=== PATIENT | female | born 1960 | race Caucasian/White ===

== ENCOUNTER 2017-06-23 11:17 | Inpatient (IN) | payer BC ==
--- NOTE | 2017-06-23 11:33 | ED ---
General Adult HPI - General Chief complaint: Neuro Symptoms/Deficit Stated complaint: LEFT ARM TINGLING, WEAKNESS, SOB Time Seen by Provider: 06/23/17 11:25 Source: patient, RN notes reviewed, old records reviewed Mode of arrival: ambulatory Limitations: no limitations - History of Present Illness Initial comments: This is a 57-year-old female to the ER for evaluation today. This patient presents for evaluation regarding episode of elevated heart rate diaphoresis shortness of breath. Patient has no specific medical history maybe by borderline high blood pressure and obesity. Patient states she was mowing her lawn which minimalistic bricks aggressive activity for her, she was mowing lawn became severely short of breath diaphoretic snores and tingling on her right arm. They did she does with the patient and pulse was in the 170s. She took a shower the pulse improved but she still felt very sweaty and clammy, patient comes here at this point with symptoms mild mildly to almost completely resolved - Related Data Home Medications Medication Instructions Recorded Confirmed Desvenlafaxine Succinate [Pristiq 50 mg PO DAILY 12/15/15 06/23/17 ER] Hydrochlorothiazide [Hydrodiuril] 25 mg PO DAILY 12/15/15 06/23/17 Cholecalciferol [Vitamin D3] 5,000 unit PO DAILY 12/21/15 06/23/17 Fish Oil/Dha/Epa [Fish Oil 1,200 1 cap PO DAILY 06/23/17 06/23/17 mg Fish Oil] SUMAtriptan SUCCINATE [Imitrex] 100 mg PO DAILY PRN 06/23/17 06/23/17 Allergies Allergy/AdvReac Type Severity Reaction Status Date / Time adhesive Allergy Severe lake to Verified 06/23/17 12:55 skin Review of Systems ROS Statement: Those systems with pertinent positive or pertinent negative responses have been documented in the HPI. ROS Other: All systems not noted in ROS Statement are negative. Past Medical History Additional Past Medical History / Comment(s): MIGRAINES, Edema, History of Any Multi-Drug Resistant Organisms: None Reported Past Surgical History: Section, Hysterectomy Additional Past Surgical History / Comment(s): BILATERAL KNEE SURGERY Past Psychological History: Depression Smoking Status: Never smoker Past Alcohol Use History: None Reported Past Drug Use History: None Reported General Exam Limitations: no limitations General appearance: alert, in no apparent distress Head exam: Present: atraumatic, normocephalic, normal inspection Eye exam: Present: normal appearance, PERRL, EOMI. Absent: scleral icterus, conjunctival injection, periorbital swelling ENT exam: Present: normal exam, mucous membranes moist Neck exam: Present: normal inspection. Absent: tenderness, meningismus, lymphadenopathy Respiratory exam: Present: normal lung sounds bilaterally. Absent: respiratory distress, wheezes, rales, rhonchi, stridor Cardiovascular Exam: Present: regular rate, normal rhythm, normal heart sounds. Absent: systolic murmur, diastolic murmur, rubs, gallop, clicks GI/Abdominal exam: Present: soft, normal bowel sounds. Absent: distended, tenderness, guarding, rebound, rigid Extremities exam: Present: normal inspection, full ROM, normal capillary refill. Absent: tenderness, pedal edema, joint swelling, calf tenderness Back exam: Present: normal inspection Neurological exam: Present: alert, oriented X3, CN II-XII intact Psychiatric exam: Present: normal affect, normal mood Skin exam: Present: warm, dry, intact, normal color. Absent: rash Course Vital Signs 06/23/17 06/23/17 06/23/17 11:24 12:08 13:47 Temperature 97.2 F L 98.8 F Pulse Rate 70 65 60 Respiratory 16 16 16 Rate Blood Pressure 150/72 114/69 127/66 O2 Sat by Pulse 95 97 99 Oximetry 06/23/17 14:19 Temperature Pulse Rate 59 L Respiratory 16 Rate Blood Pressure 131/61 O2 Sat by Pulse 100 Oximetry - Reevaluation(s) Reevaluation #1: 06/23/17 14:09 Patient has no change, remains asymptomatic. No complaints of chest pain or shortness of breath Reevaluation #2: 06/23/17 14:09 Patient discussed need to stay for cardiac observation, patient is initially to follow-up with cardiology, states she is asymptomatic, patient is told we will check another troponin and if that is negative she will be able to. Sent home as patient's to request being discharged EKG Findings - EKG Comments: EKG Findings:: EKG shows normal sinus rhythm rate of 72, AK 180, QRS 08, QTC 429 Medical Decision Making - Medical Decision Making 57 female to the ER for evaluation regarding elevated heart rate, with activity. Patient did feel diaphoretic at the time. She did take a shower afterwards felt better without fully improved, noting that her heart rate was elevated in the 170s unaffected. Patient in the ER for evaluation, no chest pain or shortness of breath a symptomatically entire emergency department stay, patient consulted disdain for echo and stress test, refusing, states she would like to follow-up as an outpatient. Troponin negative 2 EKG normal - Lab Data Result diagrams: 06/23/17 11:41 06/23/17 11:41 Lab Results 06/23/17 06/23/17 06/23/17 Range/Units 11:41 11:41 11:41 WBC 11.1 H (3.8-10.6) k/uL RBC 4.68 (3.80-5.40) m/uL Hgb 14.1 (11.4-16.0) gm/dL Hct 42.4 (34.0-46.0) % MCV 90.7 (80.0-100.0) fL MCH 30.2 (25.0-35.0) pg MCHC 33.3 (31.0-37.0) g/dL RDW 13.5 (11.5-15.5) % Plt Count 318 (150-450) k/uL Neutrophils % 66 % Lymphocytes % 24 % Monocytes % 7 % Eosinophils % 1 % Basophils % 1 % Neutrophils # 7.3 (1.3-7.7) k/uL Lymphocytes # 2.6 (1.0-4.8) k/uL Monocytes # 0.8 (0-1.0) k/uL Eosinophils # 0.1 (0-0.7) k/uL Basophils # 0.1 (0-0.2) k/uL PT (9.0-12.0) sec INR (<1.2) APTT (22.0-30.0) sec Sodium 142 (137-145) mmol/L Potassium 3.6 (3.5-5.1) mmol/L Chloride 105 (98-107) mmol/L Carbon Dioxide 29 (22-30) mmol/L Anion Gap 8 mmol/L BUN 14 (7-17) mg/dL Creatinine 0.65 (0.52-1.04) mg/dL Est GFR (MDRD) Af Amer >60 (>60 ml/min/1.73 sqM) Est GFR (MDRD) Non-Af >60 (>60 ml/min/1.73 sqM) Glucose 86 (74-99) mg/dL Calcium 9.5 (8.4-10.2) mg/dL Phosphorus 2.6 (2.5-4.5) mg/dL Magnesium 2.2 (1.6-2.3) mg/dL Total Bilirubin 0.5 (0.2-1.3) mg/dL AST 33 (14-36) U/L ALT 50 (9-52) U/L Alkaline Phosphatase 135 H (38-126) U/L Total Creatine Kinase 43 (30-135) U/L CK-MB (CK-2) 0.4 (0.0-2.4) ng/mL CK-MB (CK-2) Rel Index 0.9 Troponin I 0.012 (0.000-0.034) ng/mL Total Protein 7.1 (6.3-8.2) g/dL Albumin 3.7 (3.5-5.0) g/dL TSH 2.340 (0.465-4.680) mIU/L 06/23/17 Range/Units 11:41 WBC (3.8-10.6) k/uL RBC (3.80-5.40) m/uL Hgb (11.4-16.0) gm/dL Hct (34.0-46.0) % MCV (80.0-100.0) fL MCH (25.0-35.0) pg MCHC (31.0-37.0) g/dL RDW (11.5-15.5) % Plt Count (150-450) k/uL Neutrophils % % Lymphocytes % % Monocytes % % Eosinophils % % Basophils % % Neutrophils # (1.3-7.7) k/uL Lymphocytes # (1.0-4.8) k/uL Monocytes # (0-1.0) k/uL Eosinophils # (0-0.7) k/uL Basophils # (0-0.2) k/uL PT 10.3 (9.0-12.0) sec INR 1.0 (<1.2) APTT 24.5 (22.0-30.0) sec Sodium (137-145) mmol/L Potassium (3.5-5.1) mmol/L Chloride (98-107) mmol/L Carbon Dioxide (22-30) mmol/L Anion Gap mmol/L BUN (7-17) mg/dL Creatinine (0.52-1.04) mg/dL Est GFR (MDRD) Af Amer (>60 ml/min/1.73 sqM) Est GFR (MDRD) Non-Af (>60 ml/min/1.73 sqM) Glucose (74-99) mg/dL Calcium (8.4-10.2) mg/dL Phosphorus (2.5-4.5) mg/dL Magnesium (1.6-2.3) mg/dL Total Bilirubin (0.2-1.3) mg/dL AST (14-36) U/L ALT (9-52) U/L Alkaline Phosphatase (38-126) U/L Total Creatine Kinase (30-135) U/L CK-MB (CK-2) (0.0-2.4) ng/mL CK-MB (CK-2) Rel Index Troponin I (0.000-0.034) ng/mL Total Protein (6.3-8.2) g/dL Albumin (3.5-5.0) g/dL TSH (0.465-4.680) mIU/L - Radiology Data Radiology results: report reviewed (CXR is negative for acute disease), image reviewed Disposition Clinical Impression: Tachycardia Disposition: HOME SELF-CARE Condition: Good Instructions: Tachycardia (ED) Referrals: Espinoza Panchal MD [Primary Care Provider] - 1-2 days
[2017-06-23] MEDS ORDERED: SODIUM CHLORIDE 0.9% 1,000 ML IV STA ×2 (11:34)
[2017-06-23 11:51] LABS: Basophils # (A) 0.1 k/uL (0-0.2); Basophils % (A) 1 %; CHCM 33.2; Eosinophils # (A) 0.1 k/uL (0-0.7); Eosinophils % (A) 1 %; HCT 42.4 % (34.0-46.0); HDW 2.22; HGB 14.1 gm/dL (11.4-16.0); Luc # (Auto) 0.18; Luc % (Auto) 2; Lymphocytes # (A) 2.6 k/uL (1.0-4.8); Lymphocytes % (A) 24 %; MCH 30.2 pg (25.0-35.0); MCHC 33.3 g/dL (31.0-37.0); MCV 90.7 fL (80.0-100.0); Mean Platelet Volume 7.4; Monocytes # (A) 0.8 k/uL (0-1.0); Monocytes % (A) 7 %; Neutrophils # (A) 7.3 k/uL (1.3-7.7); Neutrophils % (A) 66 %; RBC 4.68 m/uL (3.80-5.40); RDW 13.5 % (11.5-15.5); WBC 11.1 k/uL (3.8-10.6)
[2017-06-23 11:59] LABS: Partial Thromboplastin Time 24.5 sec (22.0-30.0); Prothrombin Time 10.3 sec (9.0-12.0)
[2017-06-23 12:01] LABS: ALT 50 U/L (9-52); AST 33 U/L (14-36); Alkaline Phosphatase 135 U/L (38-126); Anion Gap 8 mmol/L; Blood Urea Nitrogen 14 mg/dL (7-17); Calcium 9.5 mg/dL (8.4-10.2); Carbon Dioxide 29 mmol/L (22-30); Chloride 105 mmol/L (98-107); Glucose 86 mg/dL (74-99); Magnesium 2.2 mg/dL (1.6-2.3); Non-African American GFR(MDRD) >60 (>60 ml/min/1.73 sqM); Phosphorous 2.6 mg/dL (2.5-4.5); Potassium 3.6 mmol/L (3.5-5.1); Sodium 142 mmol/L (137-145); Total Bilirubin 0.5 mg/dL (0.2-1.3); Total Protein 7.1 g/dL (6.3-8.2)
[2017-06-23 12:24] LABS: Creatine Kinase MB 0.4 ng/mL (0.0-2.4); Troponin I 0.012 ng/mL (0.000-0.034)
[2017-06-23] MEDS ORDERED: HEPARIN SODIUM,PORCINE 5,000 UNIT/ML 1 ML VIAL IV ONE (15:24)
[2017-06-23] MEDS ORDERED: ASPIRIN 81 MG CHEW PO STA (15:24)
--- NOTE | 2017-06-23 15:27 | ED ---
Medical Decision Making - Medical Decision Making 57 female the ER for evaluation, repeat troponin shows S elevation, patient did sever mild heart demonstrating this event. Patient has no current chest pressures of breath, will be admitted for cardiac observation - Lab Data Result diagrams: 06/23/17 11:41 06/23/17 11:41 Lab Results 06/23/17 06/23/17 06/23/17 Range/Units 11:41 11:41 11:41 WBC 11.1 H (3.8-10.6) k/uL RBC 4.68 (3.80-5.40) m/uL Hgb 14.1 (11.4-16.0) gm/dL Hct 42.4 (34.0-46.0) % MCV 90.7 (80.0-100.0) fL MCH 30.2 (25.0-35.0) pg MCHC 33.3 (31.0-37.0) g/dL RDW 13.5 (11.5-15.5) % Plt Count 318 (150-450) k/uL Neutrophils % 66 % Lymphocytes % 24 % Monocytes % 7 % Eosinophils % 1 % Basophils % 1 % Neutrophils # 7.3 (1.3-7.7) k/uL Lymphocytes # 2.6 (1.0-4.8) k/uL Monocytes # 0.8 (0-1.0) k/uL Eosinophils # 0.1 (0-0.7) k/uL Basophils # 0.1 (0-0.2) k/uL PT (9.0-12.0) sec INR (<1.2) APTT (22.0-30.0) sec Sodium 142 (137-145) mmol/L Potassium 3.6 (3.5-5.1) mmol/L Chloride 105 (98-107) mmol/L Carbon Dioxide 29 (22-30) mmol/L Anion Gap 8 mmol/L BUN 14 (7-17) mg/dL Creatinine 0.65 (0.52-1.04) mg/dL Est GFR (MDRD) Af Amer >60 (>60 ml/min/1.73 sqM) Est GFR (MDRD) Non-Af >60 (>60 ml/min/1.73 sqM) Glucose 86 (74-99) mg/dL Calcium 9.5 (8.4-10.2) mg/dL Phosphorus 2.6 (2.5-4.5) mg/dL Magnesium 2.2 (1.6-2.3) mg/dL Total Bilirubin 0.5 (0.2-1.3) mg/dL AST 33 (14-36) U/L ALT 50 (9-52) U/L Alkaline Phosphatase 135 H (38-126) U/L Total Creatine Kinase 43 (30-135) U/L CK-MB (CK-2) 0.4 (0.0-2.4) ng/mL CK-MB (CK-2) Rel Index 0.9 Troponin I 0.012 (0.000-0.034) ng/mL Total Protein 7.1 (6.3-8.2) g/dL Albumin 3.7 (3.5-5.0) g/dL TSH 2.340 (0.465-4.680) mIU/L 06/23/17 06/23/17 Range/Units 11:41 14:30 WBC (3.8-10.6) k/uL RBC (3.80-5.40) m/uL Hgb (11.4-16.0) gm/dL Hct (34.0-46.0) % MCV (80.0-100.0) fL MCH (25.0-35.0) pg MCHC (31.0-37.0) g/dL RDW (11.5-15.5) % Plt Count (150-450) k/uL Neutrophils % % Lymphocytes % % Monocytes % % Eosinophils % % Basophils % % Neutrophils # (1.3-7.7) k/uL Lymphocytes # (1.0-4.8) k/uL Monocytes # (0-1.0) k/uL Eosinophils # (0-0.7) k/uL Basophils # (0-0.2) k/uL PT 10.3 (9.0-12.0) sec INR 1.0 (<1.2) APTT 24.5 (22.0-30.0) sec Sodium (137-145) mmol/L Potassium (3.5-5.1) mmol/L Chloride (98-107) mmol/L Carbon Dioxide (22-30) mmol/L Anion Gap mmol/L BUN (7-17) mg/dL Creatinine (0.52-1.04) mg/dL Est GFR (MDRD) Af Amer (>60 ml/min/1.73 sqM) Est GFR (MDRD) Non-Af (>60 ml/min/1.73 sqM) Glucose (74-99) mg/dL Calcium (8.4-10.2) mg/dL Phosphorus (2.5-4.5) mg/dL Magnesium (1.6-2.3) mg/dL Total Bilirubin (0.2-1.3) mg/dL AST (14-36) U/L ALT (9-52) U/L Alkaline Phosphatase (38-126) U/L Total Creatine Kinase (30-135) U/L CK-MB (CK-2) (0.0-2.4) ng/mL CK-MB (CK-2) Rel Index Troponin I 0.022 (0.000-0.034) ng/mL Total Protein (6.3-8.2) g/dL Albumin (3.5-5.0) g/dL TSH (0.465-4.680) mIU/L Critical Care Time Critical Care Time: Yes Total Critical Care Time: 31 Disposition Clinical Impression: Tachycardia, NSTEMI (non-ST elevation myocardial infarction) Disposition: ADMITTED IP TO THIS HOSP Condition: Good Instructions: Tachycardia (ED) Referrals: Espinoza Panchal MD [Primary Care Provider] - 1-2 days
[2017-06-23] MEDS: HEPARIN SODIUM,PORCINE/D5W PMX 25,000 UNIT in DEXTROSE/WATER 1 500ML.BAG IV SCH (15:38)
[2017-06-23] MEDS ORDERED: SUMAtriptan SUCCINATE 50 MG TAB PO PRN (18:45)
[2017-06-23] MEDS ORDERED: Potassium Replacement Protocol 1 EACH MISC MISCELLANE PRN (18:47)
[2017-06-23] MEDS: NITROGLYCERIN SL TABS 0.4 MG TAB SUBLINGUAL PRN ×2 (19:31→19:37)
[2017-06-23] MEDS ORDERED: POTASSIUM CHLORIDE ER 20 MEQ TAB.ER PO SCH (20:00)
[2017-06-23] MEDS: METOPROLOL TARTRATE 25 MG TAB PO SCH (21:27)
[2017-06-23] MEDS ORDERED: ALPRAZolam 0.25 MG TAB PO PRN (23:27)
[2017-06-23] MEDS ORDERED: HYDROmorphone 1 MG/ML 1 ML SYRINGE IVP PRN (23:35)
[2017-06-23 23:46] LABS: ALT 46 U/L (9-52); AST 30 U/L (14-36); Alkaline Phosphatase 118 U/L (38-126); Anion Gap 9 mmol/L; Blood Urea Nitrogen 11 mg/dL (7-17); Calcium 9.2 mg/dL (8.4-10.2); Carbon Dioxide 26 mmol/L (22-30); Chloride 108 mmol/L (98-107); Glucose 103 mg/dL (74-99); Non-African American GFR(MDRD) >60 (>60 ml/min/1.73 sqM); Potassium 3.4 mmol/L (3.5-5.1); Sodium 143 mmol/L (137-145); Total Bilirubin 0.3 mg/dL (0.2-1.3); Total Protein 6.4 g/dL (6.3-8.2)
[2017-06-23 23:51] LABS: Creatine Kinase 43 U/L (30-135)
[2017-06-23] MEDS: HEPARIN SODIUM,PORCINE 5,000 UNIT/ML 1 ML VIAL IV PRN (23:51)
[2017-06-24 00:04] LABS: Creatine Kinase MB 0.7 ng/mL (0.0-2.4); Troponin I <0.012 ng/mL (0.000-0.034)
[2017-06-24 04:07] LABS: Appearance,Urine Clear (Clear); Bilirubin,Urine Negative (Negative); Glucose,Urine (UA) Negative (Negative); Ketones,Urine Negative (Negative); Leukocyte Esterase,Urine Negative (Negative); Nitrite,Urine Negative (Negative); Protein,Urine Negative (Negative); Specific Gravity,Urine 1.002 (1.001-1.035); UA Billing (MACRO vs. MICRO) CHEM; Urobilinogen,Urine <2.0 mg/dL (<2.0)
[2017-06-24 04:27] LABS: Basophils # (A) 0.1 k/uL (0-0.2); Basophils % (A) 1 %; CH 29.7; CHCM 32.1; Eosinophils # (A) 0.2 k/uL (0-0.7); Eosinophils % (A) 2 %; HCT 39.7 % (34.0-46.0); HGB 12.7 gm/dL (11.4-16.0); Luc # (Auto) 0.22; Luc % (Auto) 2; Lymphocytes # (A) 4.1 k/uL (1.0-4.8); Lymphocytes % (A) 39 %; MCH 29.8 pg (25.0-35.0); MCV 92.9 fL (80.0-100.0); Mean Platelet Volume 8.1; Monocytes # (A) 0.7 k/uL (0-1.0); Monocytes % (A) 6 %; Neutrophils # (A) 5.2 k/uL (1.3-7.7); Neutrophils % (A) 50 %; RBC 4.28 m/uL (3.80-5.40); RDW 13.6 % (11.5-15.5); WBC 10.5 k/uL (3.8-10.6); WBC (Perox) 10.63
[2017-06-24 04:36] LABS: Cholesterol 115 mg/dL (<200); HDL Cholesterol 36 mg/dL (40-60); Triglycerides 73 mg/dL (<150)
[2017-06-24] MEDS: HEPARIN SODIUM,PORCINE 5,000 UNIT/ML 1 ML VIAL IV PRN (05:57)
--- NOTE | 2017-06-24 08:46 | P.CRDCN ---
History of Present Illness Consult date: 06/24/17 Requesting physician: Alejandro Jimenez Consult reason: chest pain Chief complaint: Chest pain History of present illness: This is a pleasant 57-year-old female with no prior documented history of hypertension no diabetes, no hyperlipidemia, she is a nonsmoker, father had coronary artery bypass grafting surgery at the age of 60, she presents to the hospital with symptoms of shortness of breath, diaphoresis, left arm discomfort and tingling. According to the patient she had been out cutting her grass yesterday, she states that she became extremely diaphoretic and short of breath. She decided to put the lawnmower away and go into the house, she then developed pain that went down her left arm, caused a tingling sensation down to her fingers. She went in the house to have a shower and symptoms persisted, she continued to feel diaphoretic, short of breath. She came to the emergency room for further evaluation. While in the emergency room , patient states that she felt a heaviness in her chest, she was given 2 sublingual nitroglycerin with relief of symptoms. Patient does state that she underwent a cardiac catheterization approximately 5 years ago which was reported to be normal at that time. EKG on presentation here showed a normal sinus rhythm with no acute changes repeat EKG performed this morning shows normal sinus rhythm with no acute changes. White blood cell count on admission 11.1, 10.5 this morning. Hemoglobin 12.7. Potassium 3.4, BUN 11, creatinine 0.6, magnesium level 2.2, troponins 0.012, 0.022, 0.012. TSH 2.3, cholesterol 115, triglycerides 73, LDL 64, HDL 36. Blood pressure 134/70 with a heart rate in the 70s, temperature 97.6, 95% on room air. No Chest x-ray was performed. At the time of my examination this morning, she is currently chest pain-free, breathing is stable, she just complains of feeling tired. Past Medical History Additional Past Medical History / Comment(s): MIGRAINES, Edema, History of Any Multi-Drug Resistant Organisms: None Reported Past Surgical History: Section, Heart Catheterization, Hysterectomy Additional Past Surgical History / Comment(s): 1989 & 1991, hysterectomy 1997, BILATERAL KNEE SURGERY right knee 2004 & left knee 2009, bilateral eye cataract sx 2012, colonoscopy March 2016 right knee arthrosopy repeated, October 2012 clean cath Past Psychological History: Depression Smoking Status: Former smoker Past Alcohol Use History: None Reported Past Drug Use History: None Reported - Past Family History Mother Family Medical History: Diabetes Mellitus, Liver Disease Father Additional Family Medical History / Comment(s): Triple bypass surgery & carotids done Medications and Allergies Home Medications Medication Instructions Recorded Confirmed Type Desvenlafaxine Succinate [Pristiq 50 mg PO DAILY 12/15/15 06/23/17 History ER] Hydrochlorothiazide [Hydrodiuril] 25 mg PO DAILY 12/15/15 06/23/17 History Cholecalciferol [Vitamin D3] 5,000 unit PO DAILY 12/21/15 06/23/17 History Fish Oil/Dha/Epa [Fish Oil 1,200 1 cap PO DAILY 06/23/17 06/23/17 History mg Fish Oil] SUMAtriptan SUCCINATE [Imitrex] 100 mg PO DAILY PRN 06/23/17 06/23/17 History Allergies Allergy/AdvReac Type Severity Reaction Status Date / Time adhesive Allergy Severe lake to Verified 06/23/17 12:55 skin Physical Exam Vitals: Vital Signs Temp Pulse Pulse Resp BP BP Pulse Ox 06/24/17 04:00 97.6 F 70 18 134/75 95 06/24/17 00:00 97.1 F L 75 18 119/59 95 06/23/17 20:20 96.8 F L 76 18 141/69 95 06/23/17 16:10 97 F L 66 16 153/74 99 06/23/17 15:46 97.2 F L 67 16 146/67 98 06/23/17 14:58 62 16 131/63 99 06/23/17 14:19 59 L 16 131/61 100 06/23/17 13:47 60 16 127/66 99 06/23/17 12:08 98.8 F 65 16 114/69 97 06/23/17 11:24 97.2 F L 70 16 150/72 95 Intake and Output 06/23/17 06/24/17 06/24/17 22:59 06:59 14:59 Intake Total 1130.095 Output Total 500 Balance 630.095 Intake: Intake, IV Titration 1130.095 Amount Heparin Sodium,Porcine/ 330.095 D5w Pmx 25,000 unit In Dextrose/Water 1 500ml. bag @ 7.8 UNITS/KG/HR 19. 81 mls/hr IV .Q24H NAOMY Rx #:[id number] Sodium Chloride 0.9% 1, 800 000 ml @ 100 mls/hr IV . Q10H STA Rx#:[id number] Output: Urine 500 Other: Voiding Method Toilet Toilet # Voids 1 Weight 128.2 kg PHYSICAL EXAMINATION: HEENT: Head is atraumatic, normocephalic. Pupils equal, round. Neck is supple. There is no elevated jugular venous pressure. HEART EXAMINATION: Heart S1, S2 normal. No murmur or gallop heard. CHEST EXAMINATION: Lungs are clear to auscultation and precussion. No chest wall tenderness is noted on palpation or with deep breathing. ABDOMEN: Soft, nontender. Bowel sounds are heard. No organomegaly noted. EXTREMITIES: 2+ peripheral pulses with no evidence of peripheral edema and no calf tenderness noted. NEUROLOGIC patient is awake, alert and oriented -3. . Results 06/24/17 03:44 06/23/17 11:41 Cardiac Enzymes 06/23/17 06/23/17 06/23/17 Range/Units 11:25 11:41 11:41 AST 30 33 (14-36) U/L CK-MB (CK-2) 0.4 (0.0-2.4) ng/mL Troponin I 0.012 (0.000-0.034) ng/mL 06/23/17 06/23/17 Range/Units 14:30 23:18 AST (14-36) U/L CK-MB (CK-2) 0.7 (0.0-2.4) ng/mL Troponin I 0.022 <0.012 (0.000-0.034) ng/mL Coagulation 06/23/17 06/23/17 06/24/17 Range/Units 11:41 21:33 03:44 PT 10.3 (9.0-12.0) sec APTT 24.5 28.7 39.7 H (22.0-30.0) sec Lipids 06/24/17 Range/Units 03:44 Triglycerides 73 (<150) mg/dL Cholesterol 115 (<200) mg/dL HDL Cholesterol 36 L (40-60) mg/dL CBC 06/23/17 06/24/17 Range/Units 11:41 03:44 WBC 11.1 H 10.5 (3.8-10.6) k/uL RBC 4.68 4.28 (3.80-5.40) m/uL Hgb 14.1 12.7 (11.4-16.0) gm/dL Hct 42.4 39.7 (34.0-46.0) % Plt Count 318 255 (150-450) k/uL Comprehensive Metabolic Panel 06/23/17 06/23/17 Range/Units 11:25 11:41 Sodium 143 142 (137-145) mmol/L Potassium 3.4 L 3.6 (3.5-5.1) mmol/L Chloride 108 H 105 (98-107) mmol/L Carbon Dioxide 26 29 (22-30) mmol/L BUN 11 14 (7-17) mg/dL Creatinine 0.60 0.65 (0.52-1.04) mg/dL Glucose 103 H 86 (74-99) mg/dL Calcium 9.2 9.5 (8.4-10.2) mg/dL AST 30 33 (14-36) U/L ALT 46 50 (9-52) U/L Alkaline Phosphatase 118 135 H (38-126) U/L Total Protein 6.4 7.1 (6.3-8.2) g/dL Albumin 3.3 L 3.7 (3.5-5.0) g/dL Current Medications Generic Name Dose Route Start Last Admin Trade Name Freq PRN Reason Stop Dose Admin Alprazolam 0.25 mg 06/23/17 23:27 Xanax PO TID PRN Anxiety Aspirin 325 mg 06/24/17 09:00 Aspirin PO DAILY [facility] Cholecalciferol 5,000 unit 06/24/17 12:00 Vitamin D3 PO 1200 [facility] Desvenlafaxine Succinate 50 mg 06/24/17 09:00 Pristiq Er PO DAILY [facility] Heparin Sodium (Porcine) 0 unit 06/23/17 23:36 06/24/17 05:57 Heparin IV 3,200 unit PER PROTOCOL PRN Administration Low PTT Protocol Hydrochlorothiazide 25 mg 06/24/17 09:00 Hydrodiuril PO DAILY [facility] Hydromorphone HCl 0.5 mg 06/23/17 23:35 Dilaudid IVP Q6HR PRN Pain Heparin Sodium/Dextrose 25,000 500 mls @ 19.81 mls/hr 06/23/17 15:30 05:57 unit/ IV Solution IV 12.8 units/kg/hr .Q24H NAOMY 32.51 mls/hr Protocol Titration 7.8 UNITS/KG/HR Metoprolol Tartrate 25 mg 06/23/17 21:00 06/23/17 21:27 Lopressor PO 25 mg BID NAOMY Administration Miscellaneous Information 1 each 06/23/17 18:47 Potassium Per Protocol MISCELLANE DAILY PRN Per Protocol Protocol Nitroglycerin 0.4 mg 06/23/17 15:24 06/23/17 19:37 Nitrostat SUBLINGUAL 0.4 mg Q5M PRN Administration Chest Pain Sumatriptan Succinate 100 mg 06/23/17 18:45 06/24/17 00:22 Imitrex PO 100 mg DAILY PRN Administration Migraine Headache Intake and Output 06/23/17 06/24/17 06/24/17 22:59 06:59 14:59 Intake Total 1130.095 Output Total 500 Balance 630.095 Intake: Intake, IV Titration 1130.095 Amount Heparin Sodium,Porcine/ 330.095 D5w Pmx 25,000 unit In Dextrose/Water 1 500ml. bag @ 7.8 UNITS/KG/HR 19. 81 mls/hr IV .Q24H [facility]OMY Rx #:[id number] Sodium Chloride 0.9% 1, 800 000 ml @ 100 mls/hr IV . Q10H STA Rx#:[id number] Output: Urine 500 Other: Voiding Method Toilet Toilet # Voids 1 Weight 128.2 kg 06/24/17 03:44 06/23/17 11:41 EKG Interpretations (text) EKG shows normal sinus rhythm with no acute changes. Assessment and Plan Plan: Assessment and plan #1 symptoms of chest discomfort with associated left arm numbness and tingling, diaphoresis and shortness of breath. EKG shows normal sinus rhythm with no acute changes. Troponins 0.012, 0.022, 0.012. #2 family history of premature coronary artery disease in her father who had coronary artery bypass grafting surgery at the age of 60 #3 obesity #4 cardiac risk factors negative for hypertension, no diabetes, no hyperlipidemia, patient is a nonsmoker Plan Patient did undergo cardiac catheterization approximately 5 years ago, we will obtain a record of that. We will also obtain an echocardiogram with Doppler study. Obtain d-dimer. Obtain chest x-ray. Further recommendations to follow. DNP note has been reviewed, I agree with a documented findings and plan of care. Patient was seen and examined.
[2017-06-24] MEDS ORDERED: ASPIRIN 325 MG TAB PO SCH (09:00)
[2017-06-24] MEDS ORDERED: NON-FORMULARY DRUG (Fish Oil/Dha/Epa [Fish Oil 1,200 Mg Fish Oil] 1 CAP) PO SCH (09:00)
--- NOTE | 2017-06-24 09:27 | XR ---
EXAMINATION TYPE: XR chest 2V DATE OF EXAM ORDERED: 06/24/2017 HISTORY: sob. REFERENCE: Previous study dated 10/31/2012. FINDINGS: The lungs are clear. Pleural spaces are clear. Heart size is normal. IMPRESSION: NORMAL CHEST.
[2017-06-24] MEDS: METOPROLOL TARTRATE 25 MG TAB PO SCH ×2 (10:23→22:08)
[2017-06-24] MEDS: HYDROCHLOROTHIAZIDE 25 MG TAB PO SCH (10:23)
[2017-06-24] MEDS: DESVENLAFAXINE SUCCINATE 50 MG TAB.ER.24H PO SCH (10:23)
[2017-06-24] MEDS ORDERED: REGADENOSON 0.4 MG/5 ML SYRINGE IV ONE (12:30)
[2017-06-24] MEDS ORDERED: AMINOPHYLLINE 500 MG/20 ML VIAL IV PRN (12:36)
--- NOTE | 2017-06-24 14:13 | ECHOF ---
Referral Reason:chest pain MEASUREMENTS -------- HEIGHT: 167.6 cm WEIGHT: 127.9 kg BP: 149/73 RVIDd: 3.1 cm (< 3.3) IVSd: 1.2 cm (0.6 - 1.1) LVIDd: 4.7 cm (3.9 - 5.3) LVPWd: 1.2 cm (0.6 - 1.1) IVSs: 1.8 cm LVIDs: 2.9 cm LVPWs: 1.8 cm LAESV Index (A-L): 19.26 ml/m Ao Diam: 3.0 cm (2.0 - 3.7) AV Cusp: 1.9 cm (1.5 - 2.6) LA Diam: 3.6 cm (2.7 - 3.8) MV EXCURSION: 15.271 mm (> 18.000) MV EF SLOPE: 113 mm/s (70 - 150) EPSS: 0.6 cm MV E Lux: 0.91 m/s MV DecT: 274 ms MV A Lux: 0.83 m/s MV E/A Ratio: 1.10 RAP: 5.00 mmHg RVSP: 30.00 mmHg FINDINGS -------- Resting bradycardia (HR<60bpm). This was a technically difficult study with suboptimal views. There is mild concentric left ventricular hypertrophy. Overall left ventricular systolic function is normal with, an EF between 60 - 65 %. The right ventricle is mildly enlarged. Normal LA size by volume 22+/-6 ml/m2. The right atrium is normal in size. 1.5mg of Definity was utilized for enhancement of images Aortic valve is trileaflet and is mildly thickened. There is no evidence of aortic regurgitation. There is no evidence of aortic stenosis. The mitral valve leaflets are mildly thickened. There is trace mitral regurgitation. Trace tricuspid regurgitation present. There is no evidence of pulmonary hypertension. The right ventricular systolic pressure, as measured by Doppler, is 30.00mmHg. The pulmonic valve was not well visualized. The aortic root size is normal. IVC Not well visulized. The pericardium is normal. There is no pericardial effusion. CONCLUSIONS -------- 1. Resting bradycardia (HR<60bpm). 2. There is trace mitral regurgitation. 3. Trace tricuspid regurgitation present. 4. There is no evidence of pulmonary hypertension. 5. The right ventricular systolic pressure, as measured by Doppler, is 30.00mmHg. 6. The pulmonic valve was not well visualized. 7. The aortic root size is normal. 8. IVC Not well visulized. 9. There is no pericardial effusion. 10. This was a technically difficult study with suboptimal views. 11. There is mild concentric left ventricular hypertrophy. 12. Overall left ventricular systolic function is normal with, an EF between 60 - 65 %. 13. The right ventricle is mildly enlarged. 14. Normal LA size by volume 22+/-6 ml/m2. 15. 1.5mg of Definity was utilized for enhancement of images 16. Aortic valve is trileaflet and is mildly thickened. 17. The mitral valve leaflets are mildly thickened. [employer] OPERATIONS MANAGER: Chema Trejo RDCS
--- NOTE | 2017-06-24 14:23 | HP ---
DATE OF ADMISSION: 06/23/17 CHIEF COMPLAINT: Chest discomfort. HISTORY OF PRESENT ILLNESS: This 57-year-old woman with a past medical history of multiple medical problems including history of migraines, history of C- section), cardiac catheterization about five years ago, history of depression, being followed by Dr. Panchal in the outpatient setting was admitted to the hospital with chest discomfort to [facility]. The discomfort was also felt in the anterior part of the chest, shows mild to moderate intensity, also associated with some tingling and numbness of the left hand also. The patient came to [facility] and was admitted to the hospital for further evaluation and treatment. The patient also had some shortness of breath. The patients heart rate was subsequently apparently found to be elevated at 170. The patient also had some palpitations. The patient came to [facility] and admitted to the hospital for further evaluation and treatment. The troponins were found to be 0.012 and 0.022 after admission. There is no history of fever, rigors or chills. No history of headache, loss of consciousness or seizures. PAST MEDICAL HISTORY: History of cardiac catheterization five years ago, history of migraines, history of hysterectomy, , history of depression. Medications prior to admission include home medications: 1. Imitrex 100 mg po daily prn. 2. Hydrodiuril 25 mg po daily. 3. Fish oil one capsule daily. 4. Pristiq ER 50 mg po daily. 5. Vitamin D3 5000 daily. ALLERGIES: ADHESIVES. FAMILY HISTORY: History of diabetes, liver disease, CABG, carotid artery in the family. SOCIAL HISTORY: Occasional alcohol intake. Previous history of smoking. REVIEW OF SYSTEMS: ENT: No diminished vision. No diminished hearing. Cardiovascular: As mentioned earlier. Respiratory: As mentioned earlier. GI: No nausea or vomiting. No diarrhea. : No dysuria. Nervous system: No numbness or weakness. Allergy/Immunology: No asthma or hayfever. Musculoskeletal: As mentioned earlier. Hematology/Oncology: No history of anemia. Endocrine: No history of diabetes mellitus or hypothyroidism. Constitutional: As mentioned earlier. Dermatology: Negative. Rheumatology: Negative. Psychiatry: As mentioned earlier. PHYSICAL EXAMINATION: The patient is alert and oriented times three. Pulse 66. Blood pressure 153/74. Respiratory rate 16, temperature 97 degrees. Pulse ox 99% on room air. HEENT: Conjunctivae normal. Oral mucosa moist. NECK: No JVD. No carotid bruit. No lymph node enlargement. Cardiovascular: S1, S2 muffled. Respiratory: Breath sounds diminished at the bases. No rhonchi and no crackles. Adventitious sounds. Abdomen is soft. Nontender. No mass palpable. Legs: No edema. No swelling. Nervous system: Higher functions as mentioned earlier. Moves all four limbs. No focal motor deficits. Lymphatics: No lymph nodes palpable in the neck, axillae or groin. SKIN: No ulcer, rash or bleeding. LABS: WBC 11.1, alk phos 135. ASSESSMENT: 1. Chest pain, possible unstable angina. 2. Increased WBC. 3. Increased alkaline phosphatase. 4. History of migraines. 5. History of . 6. History of cardiac catheterization. 7. Hysterectomy. 8. History of degenerative joint disease. 9. History of depression. 10. Remote history of nicotine dependence. 11. Obesity, body mass index 40.2. 12. FULL CODE. RECOMMENDATIONS AND DISCUSSION: In this 57 -year-old woman who presented with multiple complex medical issues, we will monitor the patient closely, continue the current medications. Continue symptomatic treatment. Otherwise, recommend unstable angina protocol. Dilaudid for the pain relief. Cardiology consultation. Troponins mildly elevated as noted earlier. We will review the results of the previous cardiac catheterization. Continue to monitor. Overall guarded prognosis because of multiple complex medical issues. I would recommend repeat labs in the morning as well as examination of the UA with micro also. See orders for further details. Home medications will be continued. Further recommendations to follow. A copy of dictation being forwarded to Dr. Panchal who is the PCP. [facility]
--- NOTE | 2017-06-24 15:23 | NM ---
EXAMINATION TYPE: NM stress Lexiscan cardiolite DATE OF EXAM: 06/24/2017 COMPARISON: NONE HISTORY: Chest pain TECHNIQUE: After the intravenous administration of 9.84 mCi Tc 99m Sestamibi - Cardiolite resting SP ECT images acquired 45 minutes post injection. The patient received 0.4mg Lexiscan, 27.3 mCi Tc 99m Sestamibi - Stress images obtained [address] injection FINDINGS: There is reasonable uptake of radiopharmaceutical by the left ventricle. There is some ques tionable inducible ischemic change in the anterolateral wall of the left ventricle. Wall motion is no rmal and ejection fraction is normal at 51%. IMPRESSION: I CANNOT EXCLUDE SOME INDUCIBLE ISCHEMIC CHANGE IN THE ANTEROLATERAL WALL OF THE LEFT VENTRICLE.
[2017-06-24] MEDS: CHOLECALCIFEROL 1,000 UNIT TAB PO SCH (17:36)
[2017-06-24] MEDS: HEPARIN SODIUM,PORCINE/D5W PMX 25,000 UNIT in DEXTROSE/WATER 1 500ML.BAG IV SCH (17:46)
[2017-06-25] MEDS: HEPARIN SODIUM,PORCINE/D5W PMX 25,000 UNIT in DEXTROSE/WATER 1 500ML.BAG IV SCH (02:59)
[2017-06-25 06:40] LABS: Mean Platelet Volume 8.1
[2017-06-25] MEDS ORDERED: ASPIRIN 325 MG TAB PO STA (07:55)
[2017-06-25] MEDS ORDERED: ALPRAZolam 0.25 MG TAB PO PRN (07:55)
[2017-06-25] MEDS ORDERED: NITROGLYCERIN SL TABS 0.4 MG TAB SUBLINGUAL PRN (07:55)
[2017-06-25] MEDS ORDERED: SODIUM CHLORIDE 0.9% 1,000 ML in EMPTY BAG 1 BAG IV ONE (07:55)
[2017-06-25] MEDS ORDERED: ALPRAZolam 0.5 MG TAB PO PRN (07:55)
[2017-06-25] MEDS ORDERED: ATORVASTATIN 80 MG TAB PO STA (07:55)
--- NOTE | 2017-06-25 10:43 | PN ---
DATE OF SERVICE: 06/24/2017 This 57-year-old woman who was admitted with chest discomfort, has been closely monitored. Troponins are indeterminate. Cardiology is planning a stress chest. No chest pain or palpitation. No fever. On exam, alert and oriented x3. Pulse is 76. Blood pressure is 134/67. Respirations 18. Temperature 97.8. Pulse ox 98% on room air. HEENT: Conjunctivae normal. . NECK: No jugular venous distention. CARDIOVASCULAR: S1 and S2, muffled. RESPIRATORY: Breath sounds diminished at the bases. No rhonchi. No crackles. ABDOMEN: Soft, nontender. LEGS: No edema. NERVOUS SYSTEM: No focal deficits. Labs are APTT noted. Other labs are noted. Repeat normal. ASSESSMENT: 1. Chest pain, possible unstable angina. 2. Increased WBC, improved. 3. Increased alkaline phosphatase. 4. History of migraine. 5. History of . 6. History of cardiac catheterization. 7. History of hysterectomy. 8. History of degenerative joint disease. 9. History of depression. 10. Remote history of nicotine dependence. 11. Obesity with a body mass index of 40.2. 12. FULL CODE. RECOMMENDATIONS AND DISCUSSION: Recommend to continue current medications. Continue with monitoring and symptomatic treatment. Otherwise, stress test. Further recommendations to follow. Follow up with Dr. Panchal. OSKAR
[2017-06-25] MEDS ORDERED: diphenhydrAMINE 50 MG/ML 1 ML VIAL ONE (11:53)
[2017-06-25] MEDS ORDERED: MIDAZOLAM 2 MG/2 ML VIAL ONE (11:53)
[2017-06-25] MEDS ORDERED: fentaNYL (PF) 50 MCG/ML 2 ML AMP ONE (11:53)
[2017-06-25] MEDS ORDERED: diphenhydrAMINE 50 MG/ML 1 ML VIAL IVP ONE (12:17)
[2017-06-25] MEDS ORDERED: fentaNYL (PF) 50 MCG/ML 2 ML AMP IV ONE (12:18)
[2017-06-25] MEDS ORDERED: LIDOCAINE 2% INJ 20 MG/ML SQ ONE (12:19)
[2017-06-25] MEDS: MIDAZOLAM 2 MG/2 ML VIAL IV ONE ×2 (12:19→12:24)
[2017-06-25] MEDS ORDERED: IOHEXOL 350 MG/ML 125ML BOTTLE INJ ONE ×2 (12:42)
[2017-06-25] MEDS ORDERED: HYDROmorphone 2 MG/ML 1 ML SYRINGE ONE (12:48)
[2017-06-25] MEDS ORDERED: HYDROmorphone 2 MG/ML 1 ML SYRINGE IV ONE (12:50)
[2017-06-25] MEDS ORDERED: RX INFO: IV CONTRAST WAS GIVEN 1 EACH MISC MISCELLANE PRN (12:51)
--- NOTE | 2017-06-25 13:00 | P.PCN ---
Date of Procedure: 06/25/17 Preoperative Diagnosis: Chest pain and positive stress test Postoperative Diagnosis: Minimal disease in mid LAD, otherwise a normal coronary arteries Procedure(s) Performed: Left heart catheterization without left ventriculography Implants: Indications for Procedure: Operative Findings: Description of Procedure: HISTORY: This is a 57-year-old female was admitted to the hospital with recurrent chest pains. Patient had a nuclear stress test that showed a possible ischemia of the anterior wall. She was given the choice of having a dobutamine echo or cardiac catheter for definitive diagnosis. Patient preferred to have cardiac catheterization. CONSENT:I have discussed the risks, benefits and alternative therapies for the above-mentioned procedure and for both sedation/analgesia as well as necessary blood product administration, if indicated, as they pertain to this patient. The patient has indicated understanding and acceptance of the risks and procedures discussed. CONSCIOUS SEDATION : Patient was given 2 mg of Versed and 25 mics of fentanyl for sedation. Patient also get half a milligram of Dilaudid. The duration of sedation is 27 minutes. PROCEDURE: Patient was brought to the lab in a fasting state. Patient was given some IV sedation. The right groin is infiltrated with lidocaine and right femoral artery was entered using Seldinger technique. A 6-Wallisian catheter was left in place and selective coronary arteriography and left ventriculography was performed. Patient tolerated the procedure well. Femoral angiogram was performed and Angio-Seal was applied for hemostasis. No immediate complications were noted and patient was transferred to [facility] in a stable condition HEMODYNAMICS: The aortic pressure is 120/70. Left ankle end-diastolic pressure is 15-20. There was no gradient across the aortic valve SELECTIVE CORONARY ARTERIOGRAPHY: LEFT MAIN: Normal length and patent. THE LEFT ANTERIOR DESCENDING CORONARY ARTERY: This is a fair caliber vessel giving rise to good-sized diagonal branch. The mid LAD after the diagonal branch has mild disease. The rest of the coronary system is free of occlusive disease. THE LEFT CIRCUMFLEX AND IS CORONARY ARTERY: This is a good caliber vessel giving rise to small OM branch and good-sized PLV. Free of any occlusive disease THE RIGHT CORONARY ARTERY: This is a fair caliber vessel giving rise good-sized PDA and PLV. Free of any occlusive disease LEFT VENTRICULOGRAPHY: . Not performed FINAL IMPRESSION: Minimal or mild disease in the mid LAD. The rest of the coronary system is free of occlusive disease. PLAN: Risk factor modification and medical therapy PROGNOSIS: . Good
--- NOTE | 2017-06-25 14:50 | EST ---
DATE OF SERVICE: 06/24/2017 LEXISCAN CARDIOLITE STUDY INDICATION: Chest pain. BASELINE HEART RATE: 54 BASELINE BLOOD PRESSURE: 159/87 MAXIMUM HEART RATE: 86 MAXIMUM BLOOD PRESSURE: 219/113 85% MPHR: 137 100% MPHR: 161 METS: - MAXIMUM STAGE REACHED:- TOTAL EXERCISE TIME: - The Lexiscan Cardiolite study was performed. Patient was given Lexiscan injection over a period of 15 seconds. Peak heart rate of 86 was achieved and maximum blood pressure of 219/113 mmHg was noted. Resting EKG shows normal sinus rhythm with normal CT interval and QRS duration and normal ST-T waves. No ST-segment depression suggestive of ischemia is noted. The results of the nuclear study will follow. [facility]
[2017-06-25] MEDS: DESVENLAFAXINE SUCCINATE 50 MG TAB.ER.24H PO SCH (15:44)
[2017-06-25] MEDS: HYDROCHLOROTHIAZIDE 25 MG TAB PO SCH (15:44)
[2017-06-25] MEDS: METOPROLOL TARTRATE 25 MG TAB PO SCH ×2 (15:44→20:22)
[2017-06-25] MEDS: CHOLECALCIFEROL 1,000 UNIT TAB PO SCH (15:44)
[2017-06-25] MEDS: SODIUM CHLORIDE 0.9% 1,000 ML IV SCH (15:49)
[2017-06-26] MEDS: SODIUM CHLORIDE 0.9% 1,000 ML IV SCH (03:39)
[2017-06-26 04:28] VITALS: RESP 16
[2017-06-26 06:32] LABS: Mean Platelet Volume 7.7
[2017-06-26] MEDS: DESVENLAFAXINE SUCCINATE 50 MG TAB.ER.24H PO SCH (08:31)
[2017-06-26] MEDS: HYDROCHLOROTHIAZIDE 25 MG TAB PO SCH (08:32)
[2017-06-26] MEDS: METOPROLOL TARTRATE 25 MG TAB PO SCH (08:32)
[2017-06-26 12:10] VITALS: BP 133/73; PULSE 63; TEMP 97.5
--- NOTE | 2017-06-26 14:37 | P.PN ---
Subjective Principal diagnosis: Chest pain This is a pleasant 57-year-old female with no prior documented history of hypertension no diabetes, no hyperlipidemia, she is a nonsmoker, father had coronary artery bypass grafting surgery at the age of 60, she presents to the hospital with symptoms of shortness of breath, diaphoresis, left arm discomfort and tingling. According to the patient she had been out cutting her grass yesterday, she states that she became extremely diaphoretic and short of breath. She decided to put the lawnmower away and go into the house, she then developed pain that went down her left arm, caused a tingling sensation down to her fingers. She went in the house to have a shower and symptoms persisted, she continued to feel diaphoretic, short of breath. She came to the emergency room for further evaluation. While in the emergency room , patient states that she felt a heaviness in her chest, she was given 2 sublingual nitroglycerin with relief of symptoms. Patient does state that she underwent a cardiac catheterization approximately 5 years ago which was reported to be normal at that time. EKG on presentation here showed a normal sinus rhythm with no acute changes repeat EKG performed this morning shows normal sinus rhythm with no acute changes. White blood cell count on admission 11.1, 10.5 this morning. Hemoglobin 12.7. Potassium 3.4, BUN 11, creatinine 0.6, magnesium level 2.2, troponins 0.012, 0.022, 0.012. TSH 2.3, cholesterol 115, triglycerides 73, LDL 64, HDL 36. Blood pressure 134/70 with a heart rate in the 70s, temperature 97.6, 95% on room air. No Chest x-ray was performed. Stress test was performed which revealed questionable inducible. Therefore cardiac catheterization was performed yesterday by Dr. Castro. Cardiac catheterization revealed normal coronary arteries. Patient was seen and examined this morning, denies any chest pain, breathing stable. Objective - Vital Signs Vital signs: Vital Signs Temp 97.5 F L 06/26/17 12:00 Pulse 63 06/26/17 12:00 Resp 16 06/26/17 12:00 BP 133/73 06/26/17 12:00 Pulse Ox 94 L 06/26/17 12:00 Intake & Output 06/25/17 06/26/17 06/26/17 18:59 06:59 18:59 Intake Total 435 675 190 Balance 435 675 190 Weight 128.2 kg Intake: IV 75 10 0.9 10 Intake, IV Titration 675 Amount Sodium Chloride 0.9% 1, 675 000 ml @ 75 mls/hr IV . [id number] NAOMY Rx#:[id number] Oral 360 180 Other: Voiding Method Toilet Toilet Toilet # Voids 2 1 - Exam PHYSICAL EXAMINATION: HEENT: Head is atraumatic, normocephalic. Pupils equal, round. Neck is supple. There is no elevated jugular venous pressure. HEART EXAMINATION: Heart S1, S2 normal. No murmur or gallop heard. CHEST EXAMINATION: Lungs are clear to auscultation and precussion. No chest wall tenderness is noted on palpation or with deep breathing. ABDOMEN: Soft, nontender. Bowel sounds are heard. No organomegaly noted. Right groin soft, small amount of ecchymosis noted, no hematoma. EXTREMITIES:[ 2+ peripheral pulses with no evidence of peripheral edema and no calf tenderness noted]. NEUROLOGIC [patient is awake, alert and oriented -3.] . - Labs CBC & Chem 7: 06/26/17 05:58 06/23/17 11:41 Assessment and Plan Plan: Assessment and plan #1 symptoms of chest discomfort with associated left arm numbness and tingling, diaphoresis and shortness of breath. EKG shows normal sinus rhythm with no acute changes. Troponins 0.012, 0.022, 0.012. #2 family history of premature coronary artery disease in her father who had coronary artery bypass grafting surgery at the age of 60 #3 obesity #4 cardiac risk factors negative for hypertension, no diabetes, no hyperlipidemia, patient is a nonsmoker Plan Reactive catheterization revealed normal coronary arteries. Patient may be able to be discharged home today. We will make her a follow-up appointment in the office with Dr. Castro post discharge. DNP note has been reviewed, I agree with a documented findings and plan of care. Patient was seen and examined.
--- NOTE | 2017-06-26 15:39 | PN ---
DATE OF SERVICE: 06/25/2017 This 57-year-old woman was admitted with chest pain, indeterminate. Cardiac catheterization showed minimal coronary artery disease. No chest pain, no palpitations, no fever. On exam, alert and oriented x3. Pulse is 89, blood pressure 133/59, respirations 18, temperature 97.4, pulse ox 98% on room air. NECK: No jugular venous distention. No carotid bruit. No lymph node enlargement. CARDIOVASCULAR: S1, S2. No S3 or S4. RESPIRATORY: Breath sounds diminished at the bases. No rhonchi, no crackles. ABDOMEN: Soft, nontender, no mass palpable. LEGS: No edema, no swelling. NERVOUS SYSTEM: No focal deficits. LABS: CBC and cholesterol normal. ASSESSMENT: 1. Chest pain, myocardial infarction ruled. Cardiac cath showed only minimal coronary artery disease. Possible coronary spasm versus gastroesophageal reflux disease. 2. Increased WBC improved. 3. Increased alkaline phosphatase. 4. History of migraines. 5. History of section. 6. History of cardiac catheterization. 7. History of hysterectomy. 8. History of degenerative joint disease. 9. History of depression. 10. Remote history of nicotine dependence. 11. Obesity with body mass index of 40.2. 12. FULL CODE. RECOMMENDATIONS AND DISCUSSION: I recommend to continue the current medications, continue monitoring, continue symptomatic treatment. Otherwise closely follow with Cardiology. Increase ambulation. Further recommendations to follow. MTDD
--- NOTE | 2017-06-29 11:14 | DS ---
DATE OF SERVICE: 06/26/2017 FINAL DIAGNOSES; 1. Chest pain, myocardial infarction ruled out. Cardiac cath showed mild coronary artery disease, possibly coronary spasm versus gastroesophageal reflux disease. 2. ( ), improved. 3. Increased alkaline phosphatase. 4. History of migraines. 5. History of ( ) previous cardiac catheterization. DISCHARGE CONDITION: Will be discharged in stable condition with guarded prognosis. HISTORY OF PRESENT ILLNESS: This 57-year-old woman was admitted with chest pain. Myocardial infarction was ruled out. Cardiac cath showed only mild disease. The patient is being discharged in a stable condition with a guarded prognosis with the following advice and medications. DIET: Cardiac. ACTIVITY: Limited until follow up. FOLLOW UP: Will follow up with Dr. Paredes in 2-3 days. Follow up with cardiology as advised. MEDICATIONS: Will be as follows: 1. Vitamin D3-5,000 daily. 2. Pristiq 50 mg p.o. daily. 3. Fish oil one p.o. daily. 4. HydroDIURIL 25 mg a day. 5. Lopressor 25 mg p.o. b.i.d. 6. ( ). 7. Sumatriptan 100 mg p.o. daily. The patient is discharged in stable condition with guarded prognosis. MTDD
== END 2017-06-26 13:09 | disposition home or self-care (01) | DRG 287 ==
LOC: EC 11:17 → 6SEL 15:24
PROVIDERS: ADMIT Hospitalist; ATTEND Hospitalist
PROC: B2111ZZ Fluoroscopy of Multiple Coronary Arteries using Low Osmolar Contrast (ICD-10-PCS; 2017-06-25)
PROC: 4A023N7 Measurement of Cardiac Sampling and Pressure, Left Heart, Percutaneous Approach (ICD-10-PCS; principal; 2017-06-25 11:35)
DX: R07.9 Chest pain, unspecified (principal); Z68.41 Body mass index [BMI] 40.0-44.9, adult; E66.9 Obesity, unspecified; F32.9 Major depressive disorder, single episode, unspecified; M19.91 Primary osteoarthritis, unspecified site; G43.909 Migraine, unspecified, not intractable, without status migrainosus; Z79.899 Other long term (current) drug therapy; Z90.710 Acquired absence of both cervix and uterus; Z87.891 Personal history of nicotine dependence; Z98.42 Cataract extraction status, left eye; Z98.41 Cataract extraction status, right eye; Z91.048 Other nonmedicinal substance allergy status; Z82.49 Family history of ischemic heart disease and other diseases of the circulatory system
CPT/HCPCS: 36415; 71020; 78452; 80053; 80061; 81003; 82550; 82553; 83735; 84100; 84443; 84484; 85025; 85049; 85379; 85610; 85730; 93005; 93017; 93306; 93458

== ENCOUNTER → 2017-07-12 | Outpatient (CLI) | payer BC ==
--- NOTE | 2017-07-16 07:36 | MM ---
Reason for exam: screening (asymptomatic). Last mammogram was performed 1 year and 7 months ago. History: Patient is postmenopausal and had first child at age 29. Family history of breast cancer in aunt at age 60 and breast cancer in grandmother at age 72. Taking estrogen for 11 years 8 months beginning at age 37. Physical Findings: A clinical breast exam by your physician is recommended on an annual basis and results should be correlated with mammographic findings. MG Screening Mammo w CAD Bilateral CC and MLO view(s) were taken. Prior study comparison: November 28, 2015, bilateral MG screening mammo w CAD. March 15, 2011, bilateral digital screening mammo w/CAD. There are scattered fibroglandular densities. No suspicious abnormality. No significant changes when compared with prior studies. ASSESSMENT: Negative, BI-RAD 1 RECOMMENDATION: Routine screening mammogram of both breasts in 1 year.
== END | disposition home or self-care (01) ==
LOC: RADMAMWWP 07:03
PROVIDERS: ATTEND Family Medicine
DX: Z12.31 Encounter for screening mammogram for malignant neoplasm of breast (principal)

== ENCOUNTER → 2017-12-09 | Outpatient (CLI) | payer BC ==
--- NOTE | 2017-12-09 09:46 | US ---
EXAMINATION TYPE: US venous doppler duplex LE RT DATE OF EXAM: 12/09/2017 9:35 AM COMPARISON: NONE CLINICAL HISTORY: M79.604 Pain in lower limb. Pain right leg x 3 days SIDE PERFORMED: Right TECHNIQUE: The lower extremity deep venous system is examined utilizing real time linear array sonog jovany with graded compression, doppler sonography and color-flow sonography. VESSELS IMAGED: External Iliac Vein (EIV) Common Femoral Vein Deep Femoral Vein Greater Saphenous Vein * Femoral Vein Popliteal Vein Small Saphenous Vein * Proximal Calf Veins (* superficial vessels) Grayscale, color doppler, spectral doppler imaging performed of the deep veins of the lower extremiti es. There is normal flow, compressibility, vascular waveforms. Right Leg: No evidence of DVT IMPRESSION: No sonographic evidence of deep venous thrombosis within the right lower extremity.
== END | disposition home or self-care (01) ==
LOC: RADUSWWP 09:04
PROVIDERS: ATTEND Family Medicine
DX: M79.604 Pain in right leg (principal)

== ENCOUNTER → 2018-08-01 | Outpatient (CLI) | payer BC ==
--- NOTE | 2018-08-03 22:55 | CT ---
EXAMINATION TYPE: CT sinus wo con DATE OF EXAM: 08/01/2018 COMPARISON: None HISTORY: 58-year-old female with pain, Sinus infection x [address] DLP: 635 mGycm Automated exposure control for dose reduction was used. TECHNIQUE: Noncontrast axial views of the paranasal sinuses were obtained. Coronal reconstructions pe rformed. FINDINGS: PARANASAL SINUSES: The frontal, ethmoid, maxillary and sphenoid sinuses are clear and well pneumatized. There is no mucosal thickening or air-fluid level. Reactive tyesha- osteogenesis is not seen. There is no destruction of the osseous zavala of the paranasal sinuses. THE NASAL CAVITY: The osteomeatal complexes are patent. Slight rightward nasal septal deviation. The imaged brain and orbits are normal in appearance. Visualized mastoid air cells and middle ear cavities are well pneumatized. Reformatted images confirm above findings. IMPRESSION: Slight rightward nasal septal deviation. Otherwise, no significant paranasal sinus disease seen.
== END | disposition home or self-care (01) ==
LOC: RADCTMAIN 17:21
PROVIDERS: ATTEND Family Medicine
DX: J34.2 Deviated nasal septum (principal)
CPT/HCPCS: 70486

== ENCOUNTER → 2019-04-02 | Outpatient (CLI) | payer BC ==
[2019-04-02 08:37] LABS: INR 0.9 (<1.2); Partial Thromboplastin Time 25.9 sec (22.0-30.0); Prothrombin Time 9.7 sec (9.0-12.0)
[2019-04-02 08:38] LABS: Appearance,Urine Clear (Clear); Bilirubin,Urine Negative (Negative); Blood,Urine Negative (Negative); Color,Urine Yellow; Glucose,Urine (UA) Negative (Negative); Hyaline Casts,Urine 1 /lpf (0-2); Ketones,Urine Negative (Negative); Leukocyte Esterase,Urine Moderate (Negative); Mucus,Urine Occasional /hpf; Nitrite,Urine Negative (Negative); PH, Urine 5.5 (5.0-8.0); Protein,Urine Negative (Negative); Specific Gravity,Urine 1.023 (1.001-1.035); Squamous Epithelial Cell,Urine 6 /hpf (0-4); Urobilinogen,Urine <2.0 mg/dL (<2.0); WBC,Urine 13 /hpf (0-5)
[2019-04-02 08:45] LABS: Basophils # (A) 0.1 k/uL (0-0.2); Basophils % (A) 1 %; Eosinophils # (A) 0.1 k/uL (0-0.7); Eosinophils % (A) 1 %; HCT 43.6 % (34.0-46.0); HGB 13.8 gm/dL (11.4-16.0); Lymphocytes # (A) 3.2 k/uL (1.0-4.8); Lymphocytes % (A) 33 %; MCH 28.5 pg (25.0-35.0); MCHC 31.7 g/dL (31.0-37.0); MCV 89.7 fL (80.0-100.0); Mean Platelet Volume 6.8; Monocytes # (A) 0.6 k/uL (0-1.0); Monocytes % (A) 7 %; Neutrophils # (A) 5.4 k/uL (1.3-7.7); Neutrophils % (A) 56 %; Platelet Count 354 k/uL (150-450); RBC 4.86 m/uL (3.80-5.40); RDW 13.8 % (11.5-15.5); WBC 9.7 k/uL (3.8-10.6)
[2019-04-02 08:48] LABS: ALT 43 U/L (9-52); AST 33 U/L (14-36); Albumin 4.1 g/dL (3.5-5.0); Alkaline Phosphatase 131 U/L (38-126); Anion Gap 8 mmol/L; Blood Urea Nitrogen 15 mg/dL (7-17); Calcium 10.7 mg/dL (8.4-10.2); Carbon Dioxide 28 mmol/L (22-30); Chloride 104 mmol/L (98-107); Glucose 91 mg/dL (74-99); Potassium 4.2 mmol/L (3.5-5.1); Sodium 140 mmol/L (137-145); Total Bilirubin 0.4 mg/dL (0.2-1.3); Total Protein 7.5 g/dL (6.3-8.2)
[2019-04-02 09:00] LABS: T4, Free (Free Thyroxine) 1.05 ng/dL (0.78-2.19)
== END | disposition home or self-care (01) ==
LOC: LABWHC1 07:58
PROVIDERS: ATTEND Internal Medicine Cardiovascular Disease
DX: Z01.812 Encounter for preprocedural laboratory examination (principal); I10 Essential (primary) hypertension; F32.9 Major depressive disorder, single episode, unspecified; R53.83 Other fatigue
CPT/HCPCS: 36415; 80053; 81001; 84439; 84443; 85025; 85610; 85730

== ENCOUNTER → 2019-04-07 | Outpatient (CLI) | payer BC | END | disposition home or self-care (01) | LOC: LABWHC1 11:09 | PROVIDERS: ATTEND Orthopaedic Surgery | DX: Z01.812 Encounter for preprocedural laboratory examination (principal) | CPT/HCPCS: 87070 ==

== ENCOUNTER → 2019-04-09 | Outpatient (CLI) | payer BC ==
[2019-04-09 14:56] LABS: Appearance,Urine Clear (Clear); Bilirubin,Urine Negative (Negative); Blood,Urine Negative (Negative); Color,Urine Yellow; Glucose,Urine (UA) Negative (Negative); Ketones,Urine Negative (Negative); Leukocyte Esterase,Urine Negative (Negative); Nitrite,Urine Negative (Negative); Protein,Urine Negative (Negative); Specific Gravity,Urine 1.021 (1.001-1.035); Urobilinogen,Urine <2.0 mg/dL (<2.0)
== END | disposition home or self-care (01) ==
LOC: LABWHC1 12:48
PROVIDERS: ATTEND Family Medicine
DX: N39.0 Urinary tract infection, site not specified (principal)
CPT/HCPCS: 81003

== ENCOUNTER 2019-04-14 08:00 | Inpatient (IN) | payer BC ==
[2019-04-07 16:48] VITALS: BMI 44.4
--- NOTE | 2019-04-13 09:31 | HP ---
HISTORY AND PHYSICAL CHIEF COMPLAINT: Left knee pain. HISTORY OF PRESENT ILLNESS: The patient is a 59-year-old retired female who presents with progressive left knee pain secondary to osteoarthrosis worsening over the past 6 months. She has had previous arthroscopy in 2009. She has tried medications along with injections with only partial temporary relief. PAST MEDICAL HISTORY: Significant for arthritis, hypertension, depression. She also notes previous cutaneous T-cell lymphoma. PAST SURGICAL HISTORY: Significant for bilateral knee arthroscopy. CURRENT MEDICATIONS: 1. Hydrochlorothiazide. 2. Aspirin. 3. Metoprolol. 4. Pristiq. She has allergies to ADHESIVES. FAMILY HISTORY: Noncontributory. SOCIAL HISTORY: Negative for current tobacco or alcohol use. 16 POINT REVIEW OF SYSTEMS: Otherwise reviewed and is noncontributory. PHYSICAL EXAMINATION: On examination, the patient is approximately 5 foot 6, 274 pounds of endomorphic habitus. HEENT exam is nonfocal. NECK: Supple. She has painless passive motion of the left hip. Straight leg raise is negative. Active motion left knee -10 to 110 degrees of flexion. She has a trace effusion. She is tender about the medial joint line. She has genu varum alignment. Collaterals are stable, Saran is negative, Jenni's is equivocal. Her distal neurovascular appears intact in the left lower extremity. Weightbearing, notch, lateral and Merchant views of the left knee obtained in the office show severe medial compartment osteoarthrosis. IMPRESSION: 1. Left knee severe medial compartment osteoarthrosis. 2. Morbid obesity. 3. History of cutaneous lymphoma. RECOMMENDATIONS: I talked to the patient at length regarding her condition and treatment options. At this point, she is quite symptomatic and limited because of pain related to her osteoarthrosis. After a thorough discussion, she opts to proceed with surgery. We will plan to proceed with left total knee arthroplasty. Risks and benefits were discussed at length in layman's terms. We will institute DVT prophylaxis postoperatively. The patient underwent preoperative medical evaluation by Dr. Panchal. SAMANTHA / EFRA: [id number] /
[~2019-04-14 08:00] MED LIST: ACETAMINOPHEN TAB 500 MG TAB PO ONE; DEXAMETHASONE SOD PHOSPHATE 10 MG/ML 1 ML VIAL IV ONE; HYDROmorphone 0.5 MG/0.5 ML SYRINGE IVP PRN; MELOXICAM 7.5 MG TAB PO ONE; MIDAZOLAM 2 MG/2 ML VIAL IV PRN; ONDANSETRON 4 MG/2 ML VIAL IVP ONE; SCOPOLAMINE 1.5MG/72HR PATCH TRANSDERM ONE; TRANEXAMIC ACID 1,000 MG in SODIUM CHLORIDE 0.9% 100 ML IVPB ONE; ceFAZolin 3 GM in SODIUM CHLORIDE 0.9% 100 ML IVPB ONE
[2019-04-14] MEDS ORDERED: ROPIVACAINE 246.25 MG, EPINEPHrine 0.5 MG, KETOROLAC 30 MG, WATER FOR INJECTION,STERILE... MISCELLANE ONE ×4 (09:56)
[2019-04-14] MEDS ORDERED: LIDOCAINE 1% 20 ML VIAL (10MG/ML) FOR IV START INTRADERMA ONE (10:15)
[2019-04-14] MEDS: LACTATED RINGERS 1,000 ML IV SCH (10:15)
[2019-04-14] MEDS ORDERED: MIDAZOLAM (PF) 2 MG/2 ML VIAL IV ONE (10:29)
[2019-04-14] MEDS ORDERED: fentaNYL (PF) 50 MCG/ML 2 ML AMP IV ONE (10:29)
[2019-04-14] MEDS ORDERED: MIDAZOLAM 2 MG/2 ML VIAL ONE (10:55)
[2019-04-14] MEDS ORDERED: TRANEXAMIC ACID 1,000 MG/10 ML VIAL ONE (10:55)
[2019-04-14] MEDS ORDERED: PROPOFOL 10 MG/ML 20 ML VIAL IV ONE (10:55)
[2019-04-14] MEDS ORDERED: fentaNYL (PF) 50 MCG/ML 2 ML AMP ONE (10:55)
[2019-04-14] MEDS ORDERED: SODIUM CHLORIDE 0.9% 100 ML BAG ONE (10:55)
--- NOTE | 2019-04-14 11:21 | P.ONQ ---
Anesthesiology Proc Note - PNB - Peripheral Nerve Block Performed Left Adductor Canal Single Time Out Performed: Yes Procedure Start Time: 10:29 Indication: Acute Post-Operative Pain Specifically requested for management of pain by DrOlivia: Melquiades Sheehan Sedation Type: Sedate with meaningful contact maintained Preparation: Sterile Prep Position: Supine Catheter Depth at Skin (cm): 10 Catheter: Indwelling Needle Types: Other (see comment) (BEBA URENA) Needle Size: 100mm (4") Needle Gauge: 18 Technique: Ultrasound Injectate: 0.5% Ropivacaine (see comment for volume) (20 mL) Pain Paresthesia on Injection Noted: No Resistance on Injection: Normal Events: Uneventful and Well Tolerated
[2019-04-14] MEDS ORDERED: LACTATED RINGERS 1,000 ML IV ONE (11:58)
[2019-04-14] MEDS ORDERED: HYDROmorphone 0.5 MG/0.5 ML SYRINGE IVP PRN (12:51)
[2019-04-14] MEDS ORDERED: HYDROcodone/APAP 7.5-325MG 1 EACH TAB PO PRN (12:51)
[2019-04-14] MEDS ORDERED: NALOXONE 0.4 MG/ML 1 ML VIAL IV PRN (12:51)
[2019-04-14] MEDS ORDERED: MAGNESIUM HYDROXIDE 2,400 MG/10 ML CUP PO PRN (12:51)
[2019-04-14] MEDS ORDERED: ONDANSETRON 4 MG/2 ML VIAL IVP PRN (12:51)
--- NOTE | 2019-04-14 13:21 | P.OP ---
Date of Procedure: 04/14/19 Preoperative Diagnosis: Left knee severe tricompartmental osteoarthrosis Postoperative Diagnosis: Same Procedure(s) Performed: Left total knee arthroplastycementedcruciate retaining Implants: [employer] journey 2 size 5 cemented femoral component, size 3 cemented tibial component, 9 mm articular surface, 29 mm cemented patellar component. This is a cruciate retaining implant. Anesthesia: regional, local, spinal Surgeon: Melquiades Sheehan Key Filer #1: Rohan Perkins Estimated Blood Loss (ml): 50 Pathology: other (Bone fragments) Condition: stable Disposition: PACU Indications for Procedure: The patient is a 59-year-old female presents with progressive left knee pain secondary to osteoarthrosis despite conservative measures. A discussion of the risks and benefits of operative intervention versus continued conservative measures was made with patient. She opted to proceed with surgery. Operative risks to include infection, neurovascular injury, development of blood clots, possible component loosening, possible component failure need for subsequent procedures was discussed. Informed consent was obtained. Operative Findings: Same Description of Procedure: The patient was brought to the operating room, and after induction of spinal anesthesia the left lower extremity was prepped and draped in a normal fashion. The tourniquet was inflated to 270 mmHg. A longitudinal incision extending 3 finger breaths above the superior pole of the patella extending to the medial aspect the tibial tubercle was then made. The skin and subcutaneous tissues were divided sharply. Electrocautery was used for hemostasis. A medial parapatellar arthrotomy was then performed. The medial soft tissues to include the superficial and deep portions of the medial collateral ligament as well as the medial hamstring tendons were elevated subperiosteally. The proximal medial tibia osteophytes were carefully removed. The patella was everted. The knee was flexed. A portion of the retropatellar fat pad was excised sharply. The anterior cruciate ligament was sacrificed. A starting hole was made in the distal femur 1 cm anterior to the posterior cruciate origin. An intramedullary femoral guide was gently inserted planning on 5 valgus distal cut with 9 mm distal resection. The cutting block was pinned in place. The distal cut was then made. The posterior referencing sizing guide was utilized. 3 of external rotation was built into the system and verified off the trans- epicondylar axis and the posterior condyles. I felt size 5 was most approp riate. The cutting block was pinned in place. The anterior, posterior, and chamfer cuts were then made. The bone fragments were removed. The trial size 5 femoral component was then placed and was fully seated. There was good anterior to posterior and medial to lateral fit. The distal peg holes were then drilled. The trial component was then removed. Attention was then paid towards preparin g the proximal tibia. An extra medullary guide was utilized in line with the tibial shaft and second metatarsal distally. A 3 posterior slope was planned. I planned on 2 mm resection from the medial compartment. The cutting block was pinned in place. The proximal tibial cut was then made. The bone was removed in one fragment. The remnants of the medial and lateral menisci were excised the capsule junction with electrocautery. The tibia sized most appropriately at size 3. The posterior osteophytes off the distal femur were carefully removed with a curved osteotome. The trial tibial and femoral components were placed along with a 9 millimeters articular surface. I was able to obtain full flexion and extension with good stability with varus and valgus stress. After several flexion and extension cycles, the tibial rotation was marked with electrocautery in line with the medial one third of the tibial tubercle. Attention was then paid towards preparing the patella. A patella reamer was utilized taking this down to 14 mm of bone stock. A good flush cut was made. The patella sized most appropriately at 29 millimeters. The peg holes were then drilled. The trial component was placed. The knee was taken through a range of motion. I had good patellofemoral tracking with no hands technique. The trial components were then removed. The tibia was prepared in the appropriate rotation with appropriate drill and keel punch. The flexion and extension gaps were checked and felt to be symmetric. The posterior soft tissues were injected with ropivacaine. The bony surfaces were prepared with pulsatile lavage and dried. The deep tibial component was then cemented in place and was fully seated. Excess cement was removed. The femoral component was cemented in place and was fully seated. Again excess cement was removed. The trial 9 millimeters surface was then inserted in the knee was put in full extension. The patella component was cemented in place. After the cement had sufficiently hardened, the knee was again taken through a range of motion. Again there was good stability in flexion and extension with varus and valgus stress. The trial articular surface was then removed. The final articular surface was placed and was impacted. Care was taken to avoid any soft tissue interposition. Pulsatile lavage was again utilized. The tourniquet was deflated with approximately 70 minutes total tourniquet time. There was minimal drainage therefore a deep drain was not placed. The medial parapatellar arthrotomy was then closed with #2 Ethibond suture. The subcutaneous tissues were reapproximated interrupted 2-0 Vicryl sutures. The skin was reapproximated with 3-0 subarticular strata fix suture. Skin tape and adhesive was applied. A sterile dressing was applied. The patient was then awoken from sedation and transferred to recovery room in good condition. Blood loss was estimated at 50 milliliters. No complications were incurred. Sponge and needle counts were correct at the end the case. Pool YODER assisted during the major components this case to include exposure, bone resection, and implantation.
[2019-04-14] MEDS ORDERED: ROPIVACAINE 1,100 MG, SODIUM CHLORIDE 0.9% 500 ML 330 ML MISCELLANE PRN ×2 (13:32)
--- NOTE | 2019-04-14 13:56 | XR ---
EXAMINATION TYPE: XR knee limited LT DATE OF EXAM: 04/14/2019 CLINICAL HISTORY: Left knee pain and arthritis status post total knee replacement. TECHNIQUE: Portable AP and crosstable lateral views of the left knee are obtained immediately postop eratively. COMPARISON: None FINDINGS: Metallic hardware from total left knee arthroplasty is seen and appears satisfactory in al ignment and position. There is evidence of recent surgery with diffuse subcutaneous gas and soft tis barbra swelling noted. IMPRESSION: METALLIC HARDWARE FROM TOTAL LEFT KNEE ARTHROPLASTY IS SATISFACTORY IN ALIGNMENT.
[2019-04-14] MEDS: METOPROLOL TARTRATE 25 MG TAB PO SCH (20:58)
[2019-04-14] MEDS: SENNOSIDES-DOCUSATE SODIUM 1 EACH TAB PO SCH (20:59)
[2019-04-14] MEDS: BETAMETHASONE DIPROPIONATE 0.05% CREAM 15 GM TUBE TOPICAL SCH (20:59)
[2019-04-14] MEDS: ceFAZolin 3 GM in SODIUM CHLORIDE 0.9% 100 ML IVPB SCH (21:16)
[2019-04-15] MEDS ORDERED: HYDROmorphone 0.5 MG/0.5 ML SYRINGE ONE (00:32)
[2019-04-15] MEDS: LACTATED RINGERS 1,000 ML IV SCH (05:56)
[2019-04-15] MEDS: HYDROCHLOROTHIAZIDE 25 MG TAB PO SCH (07:04)
[2019-04-15] MEDS: RIVAROXABAN 10 MG TAB PO SCH (07:04)
[2019-04-15] MEDS: ASCORBIC ACID 500 MG TAB PO SCH (07:04)
[2019-04-15] MEDS: MONTELUKAST 10 MG TAB PO SCH (07:04)
[2019-04-15] MEDS: METOPROLOL TARTRATE 25 MG TAB PO SCH ×2 (07:04→20:44)
[2019-04-15] MEDS: HYDROcodone/APAP 7.5-325MG 1 EACH TAB PO PRN ×3 (07:05→20:44)
[2019-04-15] MEDS: BETAMETHASONE DIPROPIONATE 0.05% CREAM 15 GM TUBE TOPICAL SCH ×2 (07:09→20:45)
[2019-04-15] MEDS: DESVENLAFAXINE SUCCINATE 50 MG TAB.ER.24H PO SCH (07:51)
[2019-04-15 09:13] LABS: Basophils % (A) 0 %; Eosinophils % (A) 0 %; HCT 37.2 % (34.0-46.0); HGB 11.9 gm/dL (11.4-16.0); Lymphocytes # (A) 2.3 k/uL (1.0-4.8); Lymphocytes % (A) 15 %; MCH 29.2 pg (25.0-35.0); MCHC 31.9 g/dL (31.0-37.0); MCV 91.3 fL (80.0-100.0); Mean Platelet Volume 7.3; Monocytes # (A) 0.7 k/uL (0-1.0); Monocytes % (A) 4 %; Neutrophils # (A) 12.8 k/uL (1.3-7.7); Neutrophils % (A) 80 %; Platelet Count 267 k/uL (150-450); RBC 4.08 m/uL (3.80-5.40); RDW 14.1 % (11.5-15.5); WBC 15.9 k/uL (3.8-10.6)
[2019-04-15] MEDS: traMADol 50 MG TAB PO PRN (10:42)
--- NOTE | 2019-04-15 11:09 | P.PN ---
Subjective Progress Note Date: 04/15/19 Principal diagnosis: Status post left total knee arthroplasty Patient is evaluated at bedside today, he appears to be no acute distress. She is inflated well with therapy. Her pain is controlled at this time. Denies any chest pain or shortness of breath. Objective - Vital Signs Vital signs: Vital Signs Temp 97.9 F 04/15/19 07:00 Pulse 60 04/15/19 07:00 Resp 20 04/15/19 07:00 BP 114/72 04/15/19 07:00 Pulse Ox 95 04/15/19 07:00 Intake & Output 04/14/19 04/15/19 04/15/19 18:59 06:59 18:59 Intake Total 1050 400 Output Total 50 Balance 1000 400 Weight 124.7 kg Intake: IV 1050 Intake, IV Titration 400 Amount Lactated Ringers 1,000 ml 400 @ 50 mls/hr IV .Q20H NAOMY Rx#:[id number] Output: Estimated Blood Loss 50 Other: Voiding Method Toilet # Voids 3 - Exam Left lower extremity: Incision is clean, dry, and intact. The exofin fusion tape is in good cond ition. There is minimal soft tissue swelling and ecchymosis surrounding the medial and lateral aspects of the incision. Calf is soft, no tenderness with palpation. Plantar flexion, dorsiflexion, EHL, FHL are intact. Sensory exam to light touch throughout the extremity is intact, dorsal pedis pulses 2+. - Labs CBC & Chem 7: 04/15/19 08:34 Labs: Abnormal Lab Results - Last 24 Hours (Table) 04/15/19 Range/Units 08:34 WBC 15.9 H (3.8-10.6) k/uL Neutrophils # 12.8 H (1.3-7.7) k/uL Assessment and Plan Plan: Assessment: Postoperative day 1 status post left total knee arthroplasty Plan: Pain control, continue current medication GI and DVT prophylaxis, continue current medication Wound care was discussed with patient Ice and elevate often, utilize CPM Medical recommendations Encourage incentive spirometer Plan for discharge home tomorrow Time with Patient: Less than 30
[2019-04-15] MEDS: CALCIUM CARB-VIT D 500MG-200UN 1 EACH TAB PO SCH (11:14)
--- NOTE | 2019-04-15 13:24 | P.PN ---
Progress Note - Text Anesthesia POD 1. Patient is status post left TKR under spinal anesthesia with a left adductor canal catheter placed for postoperative pain relief. With ropivacaine 0.2% running at 8 cc's per hour, the patient's VAS is (2, 4). Catheter site is clean dry and intact.
[2019-04-15] MEDS: HYDROmorphone 1 MG/ML 1 ML SYRINGE IVP PRN ×2 (16:24→23:02)
[2019-04-15] MEDS: AMPHETAMINE PO SCH (17:32)
[2019-04-15] MEDS: DEXTROAMPHETAMINE PO SCH (17:32)
[2019-04-15] MEDS: ceFAZolin 3 GM in SODIUM CHLORIDE 0.9% 100 ML IVPB SCH (18:47)
[2019-04-15] MEDS: SENNOSIDES-DOCUSATE SODIUM 1 EACH TAB PO SCH (20:44)
--- NOTE | 2019-04-15 21:35 | PN ---
PROGRESS NOTE DATE OF SERVICE: 04/15/2019 This 59-year-old woman was admitted after left total knee arthroplasty is improving significantly. No chest pain. No palpitations. No fever. EXAM: Alert and oriented times three. Pulse 62, blood pressure 100/60, respirations 16, temperature 98 degrees, pulse ox 94 percent on room air. HEENT: Conjunctivae normal. NECK: No jugular venous distention. CARDIOVASCULAR: S1, S2 muffled. RESPIRATORY: Breath sounds diminished in the bases. A few scattered rhonchi. No crackles. ABDOMEN: Soft. Nontender. LEGS status post left knee arthroplasty. NERVOUS SYSTEM: Higher functions as mentioned earlier. Moves all 4 limbs. No focal motor or sensory deficits. SKIN: No ulcer, rash or bleeding. JOINT: No active deforming arthropathy. LAB STUDIES: WBC 15.9. ASSESSMENT: 1. Status post left total knee joint arthroplasty. 2. Increased WBC possibly reactive. 3. History of degenerative joint disease. 4. History of migraine. 5. History of cardiac catheterization. 7. History of depression. 8. Remote history of nicotine dependence. CONDITION: In this 59-year-old woman who presented with multiple complex medical issues, we will monitor the patient closely. Continue the current medications. Continue with symptomatic treatment. We will initiate home medications. Otherwise, guarded prognosis because of multiple complex medical issues. Further recommendations to follow. MMODL / IJN: [id number] / MTDD
--- NOTE | 2019-04-16 03:17 | CONS ---
CONSULTATION DATE OF SERVICE: 04/14/2019 REASON FOR CONSULTATION: Advice regarding history of DJD, migraines, other medical issues; requested by Dr. Sheehan. HISTORY OF PRESENT ILLNESS: This 59-year-old woman with a past history of DJD, history of section, history of migraines, and depression, being followed by Dr. Panchal in the outpatient setting was admitted after left total knee arthroplasty. The patient tolerated the procedure well. There is no history of any fever, rigors or chills. No history of headache, loss of consciousness or seizures PAST MEDICAL HISTORY: History of DJD, history of migraine, history of ( ), depression, nicotine dependence. Medications prior to admission home medications are: 1. Bactrim DS 1 p.o. b.i.d. 2. Singular 10 mg p.o. 3. Lopressor 25 mg p.o. daily. 4. Ibuprofen 200 mg q.h.s. 5. HydroDIURIL 25 mg. 6. Bentyl 10 mg p.o. 7. Pristiq 50 mg q.a.m. 8. Vitamin D3 5000 daily. 9. Calcium with vitamin D 1 p.o. daily. 10.Betamethasone 1 application b.i.d. 11.Aspirin 81 mg daily. 12.Vitamin C 1000 mg p.o. daily. ALLERGIES: ADHESIVES. FAMILY HISTORY: History of CABG and carotid surgery in the family. SOCIAL HISTORY: History of alcohol, history of previous smoking. REVIEW OF SYSTEMS: ENT: No diminished hearing or vision. CARDIOVASCULAR: No angina. RESPIRATORY: No cough. GI: No nausea. : No dysuria. NERVOUS SYSTEM: No numbness or weakness. ALLERGY: None. MUSCULOSKELETAL: As mentioned earlier. HEMATOLOGY/ONCOLOGY: No history of anemia. ENDOCRINE: No history of diabetes. CONSTITUTIONAL: As mentioned earlier. PHYSICAL EXAMINATION: Alert and oriented x3. Pulse is 52, blood pressure 150/60, respirations 16, temp 98.3, pulse ox 94% on room air. HEENT: Conjunctivae normal. Oral mucosa moist. NECK: No jugular venous distention. No lymph node enlargement. CARDIOVASCULAR: S1, S2. RESPIRATORY: Diminished breath sounds at the bases. No rhonchi, no crackles. ABDOMEN: Soft, nontender. No mass. LEGS: Status post knee arthroplasty. NERVOUS SYSTEM: Higher functions as mentioned earlier. Moves all four limbs. No focal motor deficit. LYMPHATICS: None. SKIN: No rash. LABS: Not available. ASSESSMENT: 1. Status post left total knee arthroplasty. 2. Degenerative joint disease. 3. History of migraine. 4. History of section. 5. History of depression. 6. Remote history of nicotine dependence. RECOMMENDATION AND DISCUSSION: In this 59-year-old woman who presented with multiple complex medical issues, we will monitor the patient closely, continue the current medications, DVT prophylaxis, incentive spirometry. Otherwise, will also resume the home medications. Otherwise, closely follow with Orthopedics. Further recommendations to follow. MMODL / IJN: [id number] /
[2019-04-16] MEDS: HYDROcodone/APAP 7.5-325MG 1 EACH TAB PO PRN ×2 (05:34→10:56)
[2019-04-16] MEDS: LACTATED RINGERS 1,000 ML IV SCH (06:10)
[2019-04-16] MEDS: AMPHETAMINE PO SCH (07:33)
[2019-04-16] MEDS: DEXTROAMPHETAMINE PO SCH (07:33)
[2019-04-16 07:36] VITALS: BP 161/63; PULSE 67; RESP 18; TEMP 98
[2019-04-16] MEDS: CALCIUM CARB-VIT D 500MG-200UN 1 EACH TAB PO SCH (07:40)
[2019-04-16] MEDS: HYDROCHLOROTHIAZIDE 25 MG TAB PO SCH (07:40)
[2019-04-16] MEDS: DESVENLAFAXINE SUCCINATE 50 MG TAB.ER.24H PO SCH (07:41)
[2019-04-16] MEDS: HYDROmorphone 1 MG/ML 1 ML SYRINGE IVP PRN (07:41)
[2019-04-16] MEDS: RIVAROXABAN 10 MG TAB PO SCH (07:41)
[2019-04-16] MEDS: METOPROLOL TARTRATE 25 MG TAB PO SCH (07:41)
[2019-04-16] MEDS: MONTELUKAST 10 MG TAB PO SCH (07:41)
[2019-04-16] MEDS: ASCORBIC ACID 500 MG TAB PO SCH (07:41)
[2019-04-16] MEDS: BETAMETHASONE DIPROPIONATE 0.05% CREAM 15 GM TUBE TOPICAL SCH (07:44)
--- NOTE | 2019-04-16 08:18 | P.PN ---
Subjective Progress Note Date: 04/16/19 Principal diagnosis: Status post left total knee arthroplasty Patient is evaluated at bedside today, he appears to be no acute distress. Her pain is controlled at this time. Denies any chest pain or shortness of breath. Objective - Vital Signs Vital signs: Vital Signs Temp 98.0 F 04/16/19 07:35 Pulse 67 04/16/19 07:35 Resp 18 04/16/19 07:35 BP 161/63 04/16/19 07:35 Pulse Ox 93 L 04/16/19 07:35 Intake & Output 04/15/19 04/16/19 04/16/19 18:59 06:59 18:59 Intake Total 1040 Balance 1040 Intake: Oral 1040 Other: Voiding Method Toilet # Voids 2 1 - Exam Left lower extremity: Incision is clean, dry, and intact. The exofin fusion tape is in good condition. There is minimal soft tissue swelling and ecchymosis surrounding the medial and lateral aspects of the incision. Calf is soft, no tenderness with palpation. Plantar flexion, dorsiflexion, EHL, FHL are intact. Sensory exam to light touch throughout the extremity is intact, dorsal pedis pulses 2+. - Labs CBC & Chem 7: 04/15/19 08:34 Labs: Abnormal Lab Results - Last 24 Hours (Table) 04/15/19 Range/Units 08:34 WBC 15.9 H (3.8-10.6) k/uL Neutrophils # 12.8 H (1.3-7.7) k/uL Assessment and Plan Plan: Assessment: Postoperative day #2 status post left total knee arthroplasty Plan: Pain control, plan for discharge on oral medication GI and DVT prophylaxis, continue current medication Wound care was discussed with patient Ice and elevate often, utilize CPM Medical recommendations Encourage incentive spirometer Plan for discharge home today Time with Patient: Less than 30
--- NOTE | 2019-04-16 08:40 | P.DS ---
Providers Date of admission: 04/14/19 09:26 Expected date of discharge: 04/16/19 Attending physician: Melquiades Sheehan Consults: 04/14/19 12:51 Consult Physician Routine Consulting Provider: Espinoza Panchal Consult Reason/Comments: medical management Do you want consulting provider notified?: Yes Primary care physician: Nakul Panchal [facility] Course: Date of admission: 04/14/2019 Date of discharge: 04/16/2019 Admission diagnosis: Status post left total knee arthroplasty Discharge diagnosis: Same Attending physician: Dr. Sheehan Surgical procedures: Left total knee arthroplasty Brief history: Patient is a 59-year-old female with a history of progressive primary left knee osteoarthritis. At this point patient has failed conservative treatment measures and has opted to proceed with a elective left total knee arthroplasty. Hospital course: Details of patient's surgery can be found in operative report. Patient tolerated the procedure well and was subsequently transported to orthopedic floor. Patient's orthopeidc and medical care was provided daily. Patient had daily laboratory tests performed for evaluation of overall blood counts. Patient had daily physical therapy to include strengthening range of motion as well as education with walker ambulation. Patient had daily CPM usage as part of their physical therapy program. Patient was treated with Xarelto for their postoperative DVT prophylaxis during their inpatient stay. Patient was noted to have a relatively uneventful postoperative course. Patient reported satisfactory pain control with oral pain medications by postoperative day 0. Patient showed satisfactory progress with physical therapy. Patient moved steadily through the program and had no difficulty meeting the goals by postope rative day 2. Given patient's otherwise satisfactory course and having met physical therapy goals, plan is to discharge patient home on postoperative day 2. Discharge condition/disposition: Patient will be discharged home in stable condition. Discharge medications: Instructions are given on resumption of patient's normal daily medications per primary care recommendation, in addition patient will be prescribed Pullman 7.5 mg/325 mg, tramadol 50 mg, Colace 100 mg, Eliquis 2.5mg. Discharge instructions: 1. Wound care and infection precautions, keep incision dry and covered while showering, no lotions, creams, moisturizers. No soaking, tubs, pools, hottubs. Do not scrub over the incision. 2. Weight-bear as tolerated with walker / cane until follow-up. 3. Ice and elevate when necessary. Do not exceed 20 minutes per hour with ice pack. 4. Utilize compression sleeve until seen at first follow up appointment. 5. Visiting nursing care. 6. Home physical therapy including home CPM. 7. Pain meds and anticoagulants per prescription. 8. Pain medication has potential to cause constipation. Increase oral fluid and fiber intake. Contact primary care provider if you have not had a bowel movement within 48 hours after discharge 9. No anti-inflammatory medication until discussed at first post operative visit, this including Motrin, Aleve, Mobic, Diclofenac. 10. Follow up in office at 2 weeks postop with Pool Perkins PA-C 11. Follow up with your primary care doctor 7-10 days after discharge. 12. Contact [facility] with any questions, . Procedures: Left total knee arthroplasty Patient Condition at Discharge: Good Plan - Discharge Summary Discharge Rx Participant: Yes New Discharge Prescriptions: New Docusate [Colace] 100 mg PO DAILY #30 capsule Apixaban [Eliquis] 2.5 mg PO BID #60 tab HYDROcodone/APAP 7.5-325MG [Pullman 7.5] 1 - 2 each PO Q6HR PRN #40 tab PRN Reason: Pain traMADol HCl [Ultram] 50 mg PO Q6H PRN #28 tab PRN Reason: Pain No Action Hydrochlorothiazide [Hydrodiuril] 25 mg PO DAILY Cholecalciferol [Vitamin D3 (25 Mcg = 1000 Iu)] 5,000 unit PO DAILY Metoprolol Tartrate [Lopressor] 25 mg PO BID #60 tab Betamethasone Dipropionate [Diprolene AF 0.05% Cream] 1 applic TOPICAL BID Montelukast [Singulair] 10 mg PO DAILY Desvenlafaxine Succinate [Pristiq] 50 mg PO QAM Dextroamphetamine/Amphetamine [Adderall] 10 mg PO DAILY Ascorbic Acid [Vitamin C] 1,000 mg PO DAILY Aspirin [Adult Low Dose Aspirin EC] 81 mg PO DAILY Calcium Carbonate/Vitamin D3 [Calcium 600-Vit D3 800 Caplet] 1 tab PO DAILY Ibuprofen 200 mg PO Q6H PRN PRN Reason: Pain Sulfamethox-Tmp 800-160Mg [Bactrim DS 800-160 mg] 1 tab PO Q12HR Discharge Medication List Hydrochlorothiazide [Hydrodiuril] 25 mg PO DAILY 12/15/15 [History] Cholecalciferol [Vitamin D3 (25 Mcg = 1000 Iu)] 5,000 unit PO DAILY 12/21/15 [History] Metoprolol Tartrate [Lopressor] 25 mg PO BID #60 tab 06/26/17 [Rx] Ascorbic Acid [Vitamin C] 1,000 mg PO DAILY 04/07/19 [History] Aspirin [Adult Low Dose Aspirin EC] 81 mg PO DAILY 04/07/19 [History] Betamethasone Dipropionate [Diprolene AF 0.05% Cream] 1 applic TOPICAL BID 04/07/19 [History] Calcium Carbonate/Vitamin D3 [Calcium 600-Vit D3 800 Caplet] 1 tab PO DAILY 04/07/19 [History] Desvenlafaxine Succinate [Pristiq] 50 mg PO QAM 04/07/19 [History] Dextroamphetamine/Amphetamine [Adderall] 10 mg PO DAILY 04/07/19 [History] Ibuprofen 200 mg PO Q6H PRN 04/07/19 [History] Montelukast [Singulair] 10 mg PO DAILY 04/07/19 [History] Sulfamethox-Tmp 800-160Mg [Bactrim DS 800-160 mg] 1 tab PO Q12HR 04/07/19 [History] Apixaban [Eliquis] 2.5 mg PO BID #60 tab 04/16/19 [Rx] Docusate [Colace] 100 mg PO DAILY #30 capsule 04/16/19 [Rx] HYDROcodone/APAP 7.5-325MG [Pullman 7.5] 1 - 2 each PO Q6HR PRN #40 tab 04/16/19 [Rx] traMADol HCl [Ultram] 50 mg PO Q6H PRN #28 tab 04/16/19 [Rx] Follow up Appointment(s)/Referral(s): Espinoza Panchal MD [Primary Care Provider] - 04/30/19 9:40 am Rohan Perkins PAC [PHYSICIAN [employer]] - 04/29/19 2:10 pm Activity/Diet/Wound Care/Special Instructions: Orthopedic Discharge Instructions: 1. Wound care and infection precautions, keep incision dry and covered while showering, no lotions, creams, moisturizers. No soaking, pools, hot tubs. Do not scrub over incision. 2. Weight-bear as tolerated with walker / cane until follow-up. 3. Ice and elevate when necessary. Do not exceed 20 minutes per hour with ice pack. 4. Utilize compression sleeve until seen at first follow up appointment. 5. Pain meds and anticoagulants per prescription. 6. Pain medication has potential to cause constipation. Increase oral fluid and fiber intake. Contact primary care provider if you have not had a bowel movement within 48 hours after discharge. 7. No anti-inflammatory medication until discussed at first post operative visit, this including Motrin, Aleve, Mobic, Diclofenac. 8. Follow up in office at 2 weeks postop with Pool Perkins PA-C 9. Follow up with your primary care doctor 7-10 days after discharge. 10. Contact [facility] with any questions, [phone]. 11. [facility] - [phone] - they will contact patient to schedule nursing/physical therapy home visits 12. *Please call [employer] once home to arrange delivery of continuous passive motion (CPM) f [facility] - [phone] Discharge Disposition: HOME WITH HOME HEALTH SERVICES
[2019-04-16] MEDS ORDERED: CHOLECALCIFEROL 1,000 UNIT TAB PO SCH (09:00)
[2019-04-16] MEDS: traMADol 50 MG TAB PO PRN (09:55)
--- NOTE | 2019-04-16 10:20 | P.PN ---
Progress Note - Text Progress Note Date: 04/16/19 Postoperative day # 2 status post total knee arthroplasty, under spinal anesthesia, and adductor canal catheter placed for postoperative analgesia, currently at ropivacaine 0.2% 8 mL per hour and continuous infusion, visual analogue scale is 3-4/10, patient using oral pain medication for breakthrough pain. Assessment and plan= Acute postoperative pain, adductor canal catheter for pain control, pain is well controlled we'll continue the same management.
--- NOTE | 2019-04-16 21:01 | PN ---
PROGRESS NOTE DATE OF SERVICE: April 16, 2019. PRESENTING COMPLAINT: Knee surgery. INTERVAL HISTORY: Patient is status post knee arthroplasty. Pain is controlled, but does get some with activity. Did tolerate a diet. No nausea, vomiting. No fever. No chills. Overall feeling better. REVIEW OF SYSTEMS: Done for constitutional, cardiovascular, GI, pulmonary; relevant findings as above. CURRENT MEDICATIONS: Reviewed. PHYSICAL EXAMINATION: VITAL SIGNS: Temperature 98, pulse 57, respiratory 18, blood pressure 116/63, pulse ox 93 percent on room air. GENERAL APPEARANCE: Sitting up awake. BMI 44.4. EYES: Pupils are equal. Conjunctivae normal. NECK: JVD unable to assess. Mass not palpable. RESPIRATORY: Effort normal. LUNGS are clear. CARDIOVASCULAR: First and second sounds normal. No edema. ABDOMEN: Soft, nontender. Liver and spleen not palpable. PSYCHIATRY: Alert and oriented x3. Mood and affect normal. INVESTIGATIONS: White count 15.9, hemoglobin 11.9. ASSESSMENT: 1. Left total knee arthroplasty. 2. Morbid obesity BMI 44.1. 3. Primary osteoarthritis. 4. Essential hypertension. PLAN: Care was discussed with the patient. Questions were answered. Patient should follow up with a family doctor upon discharge. MMODL / IJN: [id number] /
== END 2019-04-16 14:06 | disposition home health service (06) | DRG 470 ==
LOC: EDSTATUS 08:00 → 2ORMAIN 09:26 → 4SSUR 15:13
PROVIDERS: ADMIT Orthopaedic Surgery; ATTEND Orthopaedic Surgery
PROC: 0SRD069 Replacement of Left Knee Joint with Oxidized Zirconium on Polyethylene Synthetic Substitute, Cemented, Open Approach (ICD-10-PCS; principal; 2019-04-14 10:35)
DX: M17.12 Unilateral primary osteoarthritis, left knee (principal); Z68.41 Body mass index [BMI] 40.0-44.9, adult; E66.01 Morbid (severe) obesity due to excess calories; I10 Essential (primary) hypertension; F32.9 Major depressive disorder, single episode, unspecified; G43.909 Migraine, unspecified, not intractable, without status migrainosus; Z79.82 Long term (current) use of aspirin; Z87.891 Personal history of nicotine dependence; Z85.72 Personal history of non-Hodgkin lymphomas; Z98.891 History of uterine scar from previous surgery; Z82.49 Family history of ischemic heart disease and other diseases of the circulatory system
CPT/HCPCS: 85025; 88300

== ENCOUNTER → 2019-05-22 | Outpatient (CLI) | payer BC ==
--- NOTE | 2019-05-22 11:19 | US ---
EXAMINATION TYPE: US venous doppler duplex LE LT DATE OF EXAM: 05/22/2019 11:13 AM COMPARISON: NONE CLINICAL HISTORY: M79.662,R22.42 PAIN AND SWELLING IN LT LOWER LIMB. Left knee replacements 04-14-2019 , pain and swelling SIDE PERFORMED: Left TECHNIQUE: The lower extremity deep venous system is examined utilizing real time linear array sonog jovany with graded compression, doppler sonography and color-flow sonography. VESSELS IMAGED: External Iliac Vein (EIV) Common Femoral Vein Deep Femoral Vein Greater Saphenous Vein * Femoral Vein Popliteal Vein Small Saphenous Vein * Proximal Calf Veins (* superficial vessels) Grayscale, color doppler, spectral doppler imaging performed of the deep veins of the left lower extr emity. There is normal flow, compressibility, vascular waveforms. Left Leg: Negative for DVT IMPRESSION: No sonographic evidence of deep venous thrombosis within the left lower extremity.
== END | disposition home or self-care (01) ==
LOC: RADUSWWP 10:54
PROVIDERS: ATTEND Orthopaedic Surgery
DX: M79.662 Pain in left lower leg (principal); R22.42 Localized swelling, mass and lump, left lower limb; Z91.048 Other nonmedicinal substance allergy status

== ENCOUNTER 2019-06-09 09:48 | Day surgery (SDC) | payer BC ==
[2019-06-03 15:52] VITALS: BMI 44.4
--- NOTE | 2019-06-08 09:36 | HP ---
HISTORY AND PHYSICAL CHIEF COMPLAINT: Left knee stiffness. HISTORY OF PRESENT ILLNESS: The patient is a 59-year-old retired female who underwent a left total knee arthroplasty on 04/14/2019 without complication. Postoperatively, she underwent adequate rehabilitation with persistence of stiffness. PAST MEDICAL HISTORY: Significant for depression, hypertension, and arthritis. PAST SURGICAL HISTORY: Significant for recent left total knee arthroplasty. CURRENT MEDICATIONS: 1. Hydrochlorothiazide. 2. Aspirin. 3. Metoprolol. 4. Adderall. 5. Pristiq. 6. Singulair. 7. [place]. 8. Tramadol. She has allergies to SURGICAL ADHESIVES. FAMILY HISTORY: Significant for heart disease and diabetes along with cancer. SOCIAL HISTORY: Negative for current tobacco or alcohol use. REVIEW OF SYSTEMS: A 16-point review of systems otherwise reviewed and is noncontributory. PHYSICAL EXAMINATION: The patient is approximately 5 foot 6, 274 pounds of endomorphic habitus. HEENT exam is nonfocal. Neck is supple. She has painless passive motion of her left hip. Straight leg raise is negative. Active motion left knee -10 to 75 degrees of flexion. Her incision is well healed. There is no warmth or erythema. She has no real joint line tenderness. Collaterals are stable. Homans is negative. Her distal neurovascular exam appears intact in the left lower extremity. Weightbearing AP and lateral views of the left knee obtained in the office show a total knee arthroplasty in overall good alignment. IMPRESSION: Status post left total knee arthroplasty with arthrofibrosis. RECOMMENDATIONS: I talked to the patient at length regarding her condition along with treatment options. At this point, we will plan to proceed with manipulation under anesthesia. We will start a Medrol Dosepak directly after the procedure in addition to continuing with therapy. Risks and benefits were discussed at length in layman's terms. MMODL / IJN: [id number] /
[~2019-06-09 09:48] MED LIST changes: -ACETAMINOPHEN TAB 500 MG TAB PO ONE; -DEXAMETHASONE SOD PHOSPHATE 10 MG/ML 1 ML VIAL IV ONE; -HYDROmorphone 0.5 MG/0.5 ML SYRINGE IVP PRN; +LACTATED RINGERS 1,000 ML IV SCH; -MELOXICAM 7.5 MG TAB PO ONE; -ONDANSETRON 4 MG/2 ML VIAL IVP ONE; -SCOPOLAMINE 1.5MG/72HR PATCH TRANSDERM ONE; -TRANEXAMIC ACID 1,000 MG in SODIUM CHLORIDE 0.9% 100 ML IVPB ONE
[2019-06-09] MEDS ORDERED: LIDOCAINE 1% 20 ML VIAL (10MG/ML) FOR IV START INTRADERMA ONE (10:25)
[2019-06-09] MEDS ORDERED: MIDAZOLAM 2 MG/2 ML VIAL ONE (11:36)
[2019-06-09] MEDS ORDERED: fentaNYL (PF) 50 MCG/ML 2 ML AMP ONE (11:36)
[2019-06-09] MEDS ORDERED: PROPOFOL 10 MG/ML 20 ML VIAL IV ONE (11:36)
[2019-06-09] MEDS ORDERED: KETOROLAC 30 MG/ML 1 ML VIAL IVP ONE (11:44)
--- NOTE | 2019-06-09 11:54 | P.OP ---
Date of Procedure: 06/09/19 Preoperative Diagnosis: Arthrofibrosis left knee status post total knee arthroplasty Postoperative Diagnosis: Same Procedure(s) Performed: Manipulation under anesthesia left knee Anesthesia: MAC Surgeon: Melquiades Sheehan Estimated Blood Loss (ml): 0 Pathology: none sent Condition: stable Disposition: PACU Indications for Procedure: The patient's 59-year-old female who presents after undergoing left total knee arthroplasty previously who presents with persistent stiffness despite adequate rehabilitation. A discussion of the risks and benefits of manipulation under anesthesia was made with patient. She opted to proceed. Risks of this procedure to include fracture, tendon rupture, recurrence of stiffness, possible need for subsequent procedures was discussed. Informed consent was obtained. Operative Findings: As below Description of Procedure: The patient was brought to the recovery room, and after induction of IV sedation I then gently manipulated her left knee. First I obtained 125 of flexion and carrying moderate adhesions. I was able to obtain full extension. The patient was then monitored until fully weight. No complications were incurred. There was no blood loss.
[2019-06-09 11:59] VITALS: TEMP 97.3
[2019-06-09] MEDS: HYDROmorphone 0.5 MG/0.5 ML SYRINGE IVP PRN ×2 (12:06→12:13)
[2019-06-09 12:42] VITALS: RESP 18
[2019-06-09 12:49] VITALS: BP 122/70; PULSE 67
== END 2019-06-09 13:01 | disposition home or self-care (01) ==
LOC: OR 09:48
PROVIDERS: ATTEND Orthopaedic Surgery
DX: T84.89XA Other specified complication of internal orthopedic prosthetic devices, implants and grafts, initial encounter (principal); M24.662 Ankylosis, left knee; Z96.652 Presence of left artificial knee joint; I25.10 Atherosclerotic heart disease of native coronary artery without angina pectoris; I10 Essential (primary) hypertension; I25.2 Old myocardial infarction; E66.01 Morbid (severe) obesity due to excess calories; Z68.41 Body mass index [BMI] 40.0-44.9, adult; Z87.891 Personal history of nicotine dependence; Z79.82 Long term (current) use of aspirin; Z79.891 Long term (current) use of opiate analgesic; Z79.899 Other long term (current) drug therapy; Z91.09 Other allergy status, other than to drugs and biological substances; Z82.49 Family history of ischemic heart disease and other diseases of the circulatory system; Z83.3 Family history of diabetes mellitus; Z80.9 Family history of malignant neoplasm, unspecified; Z90.710 Acquired absence of both cervix and uterus
CPT/HCPCS: 27570; J2250; J3010; J1885; J2704; J1170

== ENCOUNTER 2019-09-08 22:34 | Emergency (ER) | payer BC ==
--- NOTE | 2019-09-09 00:24 | US ---
EXAMINATION TYPE: US venous doppler duplex LE LT DATE OF EXAM: 09/08/2019 11:45 PM COMPARISON: US CLINICAL HISTORY: erythema swelling. Swelling, erythema x 3 days. No HX of DVT. Pt takes aspirin. Lef t knee replacement 04/14/2019. SIDE PERFORMED: Left TECHNIQUE: The lower extremity deep venous system is examined utilizing real time linear array sonog jovany with graded compression, doppler sonography and color-flow sonography. VESSELS IMAGED: External Iliac Vein (EIV) Common Femoral Vein Deep Femoral Vein Greater Saphenous Vein * Femoral Vein Popliteal Vein Small Saphenous Vein * Proximal Calf Veins (* superficial vessels) Left Leg: Patient cannot tolerate compression of distal femoral vein. Patient claims this area is ve ry tender. No evidence of DVT in veins imaged from prox calf veins to EIV. IMPRESSION: No evidence of deep venous thrombosis in the left leg.
[2019-09-09] MEDS ORDERED: CEPHALEXIN 500MG STARTER PACK 4 CAP BTL PO STA (00:44)
--- NOTE | 2019-09-09 00:44 | ED ---
General Adult HPI - General Chief complaint: Skin/Abscess/Foreign Body Stated complaint: Cellulitis Bilateral Legs Time Seen by Provider: 09/08/19 22:50 Source: patient, RN notes reviewed, old records reviewed Mode of arrival: ambulatory Limitations: no limitations - History of Present Illness Initial comments: 59-year-old female presents today for evaluation for concern for 3 days of lower extremity redness and pain and swelling. Patient reports it's worse over her left lower extremity. Patient reports that she is concerned she had cellulitis. Patient states that she has had worsening redness before coming to the ER, but it is now improved. Patient at this time Patient reports no history of blood clots. She states that she had a left knee replacement. Months ago concerned that she doesn't get infected and within her joint. Patient states that she feels silly this time as the redness has seemed to improve compared to earlier today. - Related Data Home Medications Medication Instructions Recorded Confirmed Hydrochlorothiazide [Hydrodiuril] 25 mg PO DAILY 12/15/15 09/08/19 Cholecalciferol [Vitamin D3 (25 5,000 unit PO DAILY 12/21/15 09/08/19 Mcg = 1000 Iu)] Ascorbic Acid [Vitamin C] 1,000 mg PO DAILY 04/07/19 09/08/19 Aspirin [Adult Low Dose Aspirin EC] 81 mg PO DAILY 04/07/19 09/08/19 Desvenlafaxine Succinate [Pristiq] 50 mg PO QAM 04/07/19 09/08/19 Montelukast [Singulair] 10 mg PO DAILY 04/07/19 09/08/19 Multivitamins, Thera [Multivitamin 1 tab PO DAILY 06/03/19 09/08/19 (formulary)] Dextroamphetamine/Amphetamine 10 mg PO QAM 09/08/19 09/08/19 [Adderall Xr] Previous Rx's Medication Instructions Recorded Metoprolol Tartrate [Lopressor] 25 mg PO BID #60 tab 06/26/17 Cephalexin [Keflex] 500 mg PO Q8HR #21 cap 09/09/19 Allergies Allergy/AdvReac Type Severity Reaction Status Date / Time adhesive Allergy Severe lake to Verified 09/08/19 23:19 skin Review of Systems ROS Statement: Those systems with pertinent positive or pertinent negative responses have been documented in the HPI. ROS Other: All systems not noted in ROS Statement are negative. 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 History of Any Multi-Drug Resistant Organisms: None Reported Past Surgical History: Section, Heart Catheterization, Hysterectomy, Joint Replacement Additional Past Surgical History / Comment(s): 1989 & 1991, hysterectomy 1997, right knee surgery 2004 & left knee 2009, armando cataract 2012, colonoscopy 2015, 2016 right knee arthrosopy repeated, Heart Cath June 2017 (mph), Total Left Knee (04/14/19) Past Anesthesia/Blood Transfusion Reactions: Postoperative Nausea & Vomiting (PONV) Past Psychological History: Depression Smoking Status: Former smoker Past Alcohol Use History: None Reported Past Drug Use History: None Reported - Past Family History Mother Family Medical History: No Reported History Father Additional Family Medical History / Comment(s): Triple bypass surgery & carotids done General Exam - General Exam Comments Initial Comments: This is a 59-year-old female. Alert and oriented 3. No significant distress. Limitations: no limitations General appearance: alert, in no apparent distress Head exam: Present: atraumatic, normocephalic, normal inspection Eye exam: Present: normal appearance, PERRL, EOMI. Absent: scleral icterus, conjunctival injection, periorbital swelling ENT exam: Present: normal exam, mucous membranes moist Neck exam: Present: normal inspection. Absent: tenderness, meningismus, lymphadenopathy Respiratory exam: Present: normal lung sounds bilaterally. Absent: respiratory distress, wheezes, rales, rhonchi, stridor Cardiovascular Exam: Present: regular rate, normal rhythm, normal heart sounds. Absent: systolic murmur, diastolic murmur, rubs, gallop, clicks GI/Abdominal exam: Present: soft, normal bowel sounds. Absent: distended, tenderness, guarding, rebound, rigid Extremities exam: Present: normal inspection, full ROM, normal capillary refill. Absent: tenderness, pedal edema, joint swelling, calf tenderness Left Knee exam: Present: normal inspection (patient has scar from knee replacement), full ROM Lower Leg exam: Present: normal inspection, full ROM, erythema (Patient is very minimal erythema over the left anterior leg. No warm. no swelling. ) Ankle exam: Present: normal inspection, full ROM Foot/Toe exam: Present: normal inspection, full ROM Neurovascular tendon exam: Present: no vascular compromise Gait: observed and normal Back exam: Present: normal inspection Neurological exam: Present: alert, oriented X3, CN II-XII intact Psychiatric exam: Present: normal affect, normal mood Skin exam: Present: warm, dry, intact, normal color. Absent: rash Course Vital Signs 09/08/19 09/09/19 22:42 01:02 Temperature 98.6 F 98.0 F Pulse Rate 85 89 Respiratory 20 18 Rate Blood Pressure 158/80 149/78 O2 Sat by Pulse 94 L 98 Oximetry Medical Decision Making - Medical Decision Making Patient's external female presented today for concern for redness of her lower extremities. She is concerned for cellulitis but the redness is improved. Seems likely dependent edema or vascular insufficiency. I discussed she has does have normal pulses. Ultrasound was completed and is negative for DVT. Discussed to cover for minor cellulitis with Keflex at this time. Given starter pack and ED. Discussed the Patient may benefit from compression stocking feeding feet up and elevated. All questions were answered and return parameters were discussed. - Radiology Data Radiology results: report reviewed Ultrasound of the left lower sternal is negative for DVT. Disposition Clinical Impression: Redness and swelling of lower leg Disposition: HOME SELF-CARE Condition: Good Instructions (If sedation given, give patient instructions): Leg Edema (ED) Additional Instructions: Please use medication as discussed. Please follow up with family doctor if symptoms have not improved over the next two days. Please return to the emergency room if your symptoms increase or worsen or for any other concerns. Prescriptions: Cephalexin [Keflex] 500 mg PO Q8HR #21 cap Is patient prescribed a controlled substance at d/c from ED?: No Referrals: Espinoza Panchal MD [Primary Care Provider] - 1-2 days
[2019-09-09 01:04] VITALS: BP 149/78; PULSE 89; RESP 18; TEMP 98
== END 2019-09-09 01:04 | disposition home or self-care (01) ==
LOC: EC 22:34
DX: M79.89 Other specified soft tissue disorders (principal); L53.9 Erythematous condition, unspecified; M79.604 Pain in right leg; M79.605 Pain in left leg; I10 Essential (primary) hypertension; M19.90 Unspecified osteoarthritis, unspecified site; F32.9 Major depressive disorder, single episode, unspecified; Z87.891 Personal history of nicotine dependence; Z91.048 Other nonmedicinal substance allergy status; Z79.82 Long term (current) use of aspirin; Z79.899 Other long term (current) drug therapy; Z85.72 Personal history of non-Hodgkin lymphomas; Z96.652 Presence of left artificial knee joint
CPT/HCPCS: 99284

== ENCOUNTER → 2019-10-19 | Outpatient (CLI) | payer BC ==
--- NOTE | 2019-10-20 09:39 | MM ---
Reason for exam: screening (asymptomatic). Last mammogram was performed 2 years and 3 months ago. History: Patient is postmenopausal and had first child at age 29. Family history of breast cancer in aunt at age 60 and breast cancer in grandmother at age 72. Taking estrogen for 11 years 8 months beginning at age 37. Physical Findings: A clinical breast exam by your physician is recommended on an annual basis and results should be correlated with mammographic findings. MG Screening Mammo w CAD Bilateral CC and MLO view(s) were taken. Prior study comparison: July 12, 2017, bilateral MG screening mammo w CAD. November 28, 2015, bilateral MG screening mammo w CAD. There are scattered fibroglandular densities. No suspicious abnormality. No significant changes when compared with prior studies. ASSESSMENT: Negative, BI-RAD 1 RECOMMENDATION: Routine screening mammogram of both breasts in 1 year.
== END | disposition home or self-care (01) ==
LOC: RADMAMWWP 07:04
PROVIDERS: ATTEND Family Medicine
DX: Z12.31 Encounter for screening mammogram for malignant neoplasm of breast (principal)
CPT/HCPCS: 77067

== ENCOUNTER 2020-05-02 17:49 | Emergency (ER) | payer BC ==
[2020-05-02 18:00] VITALS: BP 133/82; PULSE 109; RESP 18; TEMP 97.9
[2020-05-02] MEDS ORDERED: IBUPROFEN 600 MG TAB PO STA (18:32)
[2020-05-02] MEDS ORDERED: ACETAMINOPHEN TAB 325 MG TAB PO STA (18:32)
[2020-05-02] MEDS ORDERED: LIDOCAINE 1% INJ 10MG/ML (20 ML MDV) SQ ONE (18:33)
--- NOTE | 2020-05-02 19:20 | ED ---
Wound/Laceration HPI - General Chief Complaint: Wound/Laceration Stated Complaint: Middle finder lac Time Seen by Provider: 05/02/20 18:08 Source: patient Mode of arrival: ambulatory Limitations: no limitations - History of Present Illness Initial Comments: 60-year-old female patient presents to the emergency department today for evaluation of laceration to the left hand. Patient states she was using an X- [employer]o knife to cut foam when she slipped and cut her hand. Patient denies any difficulty with range of motion. Denies any numbness or tingling to the hand. States her last tetanus vaccine was given an January. She does not take blood thinning medications. Denies any other injuries. Patient denies any headache, neck pain, back pain, chest pain, shortness of breath, dizziness, weakness, abdominal pain, nausea, vomiting, or difficulties with bowel movements or urination. - Related Data Home Medications Medication Instructions Recorded Confirmed Hydrochlorothiazide [Hydrodiuril] 25 mg PO DAILY 12/15/15 09/08/19 Cholecalciferol [Vitamin D3 (25 5,000 unit PO DAILY 12/21/15 09/08/19 Mcg = 1000 Iu)] Ascorbic Acid [Vitamin C] 1,000 mg PO DAILY 04/07/19 09/08/19 Aspirin [Adult Low Dose Aspirin EC] 81 mg PO DAILY 04/07/19 09/08/19 Desvenlafaxine Succinate [Pristiq] 50 mg PO QAM 04/07/19 09/08/19 Montelukast [Singulair] 10 mg PO DAILY 04/07/19 09/08/19 Multivitamins, Thera [Multivitamin 1 tab PO DAILY 06/03/19 09/08/19 (formulary)] Dextroamphetamine/Amphetamine 10 mg PO QAM 09/08/19 09/08/19 [Adderall Xr] Previous Rx's Medication Instructions Recorded Metoprolol Tartrate [Lopressor] 25 mg PO BID #60 tab 06/26/17 Cephalexin [Keflex] 500 mg PO Q8HR #21 cap 09/09/19 Allergies Allergy/AdvReac Type Severity Reaction Status Date / Time adhesive Allergy Severe lake to Verified 05/02/20 18:00 skin Review of Systems ROS Statement: Those systems with pertinent positive or pertinent negative responses have been documented in the HPI. ROS Other: All systems not noted in ROS Statement are negative. 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 History of Any Multi-Drug Resistant Organisms: None Reported Past Surgical History: Section, Heart Catheterization, Hysterectomy, Joint Replacement Additional Past Surgical History / Comment(s): 1989 & 1991, hysterectomy 1997, right knee surgery 2004 & left knee 2009, armando cataract 2012, colonoscopy 2015, 2016 right knee arthrosopy repeated, Heart Cath June 2017 (mph), Total Left Knee (04/14/19) Past Anesthesia/Blood Transfusion Reactions: Postoperative Nausea & Vomiting (PONV) Past Psychological History: Depression Smoking Status: Former smoker Past Alcohol Use History: Rare Past Drug Use History: None Reported - Past Family History Mother Family Medical History: No Reported History Father Additional Family Medical History / Comment(s): Triple bypass surgery & carotids done General Exam Limitations: no limitations General appearance: alert, in no apparent distress, other (This is a well- developed, well-nourished adult female patient in no acute distress. Vital signs upon presentation are temperature 97.9F, pulse 109, respirations 18, blood pressure 133/82, pulse ox 96% on room air.) Eye exam: Present: normal appearance, PERRL, EOMI. Absent: scleral icterus, conjunctival injection, periorbital swelling Respiratory exam: Present: normal lung sounds bilaterally. Absent: respiratory distress, wheezes, rales, rhonchi, stridor Cardiovascular Exam: Present: regular rate, normal rhythm, normal heart sounds. Absent: systolic murmur, diastolic murmur, rubs, gallop, clicks Extremities exam: Present: full ROM, normal capillary refill, other (There is 3cm laceration noted over the left hand at the base of the left middle finger dorsally. Patient has full range of motion. Sensation intact. No active bleeding noted. Skin is otherwise pink, warm, dry. Cap refills less than 3 seconds. Radial pulses 2+ and equal bilaterally.). Absent: normal inspection, tenderness, pedal edema, joint swelling, calf tenderness Neurological exam: Present: alert, oriented X3, CN II-XII intact Psychiatric exam: Present: normal affect, normal mood Skin exam: Present: warm, dry, intact, normal color. Absent: rash Course Vital Signs 05/02/20 17:57 Temperature 97.9 F Pulse Rate 109 H Respiratory 18 Rate Blood Pressure 133/82 O2 Sat by Pulse 96 Oximetry Procedures - Laceration Laceration #1 Consent Obtained: verbal consent Indication: laceration Site: hand (Left) Size (cm): 3 Description: linear Depth: simple, single layer Anesthetic Used: lidocaine 1% Anesthesia Technique: local infiltration Amount (mls): 4 Pre-repair: irrigated extensively Type of Sutures: nylon Size of Sutures: 5-0 Number of Sutures: 3 Technique: simple, interrupted Patient Tolerated Procedure: well, no complications Medical Decision Making - Medical Decision Making 60-year-old female patient presents to the emergency department today for evaluation of laceration to the left hand. Neurovascular status was intact. Full range of motion was intact. Laceration was repaired as documented. She is educated regarding signs or symptoms of infection and wound care. She is instructed to return in 7 days to have the stitches removed. She is instructed to follow-up with the primary care physician for recheck in 1-2 days. Return parameters discussed in detail. She verbalizes understanding and agrees with this plan. Disposition Clinical Impression: Finger laceration Disposition: HOME SELF-CARE Condition: Good Instructions (If sedation given, give patient instructions): Finger Laceration (ED) Additional Instructions: Keep wound clean and dry. Cleanse twice daily with warm water and antibacterial soap. Monitor for signs or symptoms of infection including but not limited to redness, swelling, drainage of pus, fever, or chills. Follow-up through primary care physician for recheck in 1-2 days. Return in 7 days to have the stitches removed. Return for any other new, worsening, or concerning symptoms. Is patient prescribed a controlled substance at d/c from ED?: No Referrals: Espinoza Panchal MD [Primary Care Provider] - 1-2 days Time of Disposition: 19:35
== END 2020-05-02 19:45 | disposition home or self-care (01) ==
LOC: EC 17:49
DX: S61.213A Laceration without foreign body of left middle finger without damage to nail, initial encounter (principal); I10 Essential (primary) hypertension; M19.90 Unspecified osteoarthritis, unspecified site; F32.9 Major depressive disorder, single episode, unspecified; Z85.72 Personal history of non-Hodgkin lymphomas; Z95.818 Presence of other cardiac implants and grafts; Z96.9 Presence of functional implant, unspecified; Z87.891 Personal history of nicotine dependence; Z79.82 Long term (current) use of aspirin; Z79.899 Other long term (current) drug therapy; Z91.048 Other nonmedicinal substance allergy status; W26.0XXA Contact with knife, initial encounter; Y92.009 Unspecified place in unspecified non-institutional (private) residence as the place of occurrence of the external cause
CPT/HCPCS: 99282; 12002; J2001

== ENCOUNTER → 2022-07-05 | Outpatient (CLI) | payer BC ==
[2022-07-05 10:41] LABS: MCH 28.5 pg (27.0-32.0); MCHC 31.1 g/dL (32.0-37.0); MCV 91.6 fL (80.0-97.0); Mean Platelet Volume 10.6 fL (9.5-12.2); NRBC Per 100 WBC 0 /100 WBCS (0.0-0.0); Platelet Count 334 X 10*3/uL (140-440); RBC 4.91 X 10*6/uL (4.10-5.20); RDW 13.2 % (11.5-14.5); WBC 9.81 X 10*3/uL (4.50-10.00)
[2022-07-05 10:51] LABS: ALT 41 U/L (8-44); AST 44 U/L (13-35); African American GFR (CKD) 107.4 (60.0-200.0); Albumin 3.9 g/dL (3.8-4.9); Albumin/Globulin Ratio 1.04 (1.60-3.17); Alkaline Phosphatase 128 U/L (41-126); BUN/Creat Ratio 21.04 Ratio (12.00-20.00); Blood Urea Nitrogen 14.2 mg/dL (9.0-27.0); Calcium 9.6 mg/dL (8.7-10.3); Carbon Dioxide 23.6 mmol/L (20.0-27.5); Chloride 103 mmol/L (96-109); Chol/HDL Ratio 3.56 Ratio; Globulin 3.7 g/dL (1.6-3.3); Glucose 108 mg/dL (70-110); LDL Cholesterol,Calculated 79.5 mg/dL (0.0-131.0); Non-African American GFR(CKD) 92.7 (60.0-200.0); Potassium 3.7 mmol/L (3.5-5.5); Sodium 140 mmol/L (135-145); Total Protein 7.6 g/dL (6.2-8.2)
--- NOTE | 2022-07-06 08:40 | MM ---
Reason for Exam: Screening (asymptomatic). Last mammogram was performed 2 year(s) and 9 month(s) ago. Patient History: Menarche at age 15. First Full-Term at age 29. Late child-bearing (after 28). Left ovary removed at age 37. Right ovary removed at age 37. Hysterectomy at age 37. Postmenopausal. Estrogen, starting at age 37 for 11 years, 8 months. Maternal grandmother had breast cancer, age 72. Maternal aunt had breast cancer, age 60. Risk Values: Sarahy 5 year model risk: 2.0%. NCI Lifetime model risk: 8.1%. Prior Study Comparison: 11/28/2015 Bilateral Screening Mammogram, [facility]. 07/12/2017 Bilateral Screening Mammogram, [facility]. 10/19/2019 Bilateral Screening Mammogram, [facility]. Tissue Density: There are scattered fibroglandular densities. Findings: Analyzed By CAD. Prominent but benign-appearing bilateral axillary lymph nodes are redemonstrated and stable. There is no suspicious group of microcalcifications or new suspicious mass in either breast. Overall Assessment: Benign, BI-RAD 2 Management: Screening Mammogram of both breasts in 1 year. A clinical breast exam by your physician is recommended on an annual basis and results should be correlated with mammographic findings. Electronically signed and approved by: Monroe Mustafa M.D.
== END | disposition home or self-care (01) ==
LOC: RADMAMWWP 06:58
PROVIDERS: ATTEND Family Medicine
DX: Z12.31 Encounter for screening mammogram for malignant neoplasm of breast (principal); Z78.0 Asymptomatic menopausal state; Z80.3 Family history of malignant neoplasm of breast
CPT/HCPCS: 77067; 80053; 80061; 85027

== ENCOUNTER → 2023-07-30 | Outpatient (CLI) | payer BC ==
--- NOTE | 2023-07-30 16:13 | P.SLEEP ---
History of Present Illness H&P Date: 07/30/23 This is a 63-year-old female patient who is coming in for excessive fatigue and sleepiness. The patient spending approximately 10 hours in bed. She goes to bed at around 11 PM she gets out of bed at 10 AM in the morning. She feels non- refreshed. She takes naps during the day at around 3 PM and sometimes at around 5 PM. Her weight is up by around 40 pounds over the past 10 years. She sleeps on her side and sometimes on her back yet she prefers essentially to sleep on her side. She snores. She will occasionally hears herself snoring and she wakes up choking. She is concerned of the possibility of her having sleep apnea and for that reason she came in. Her who is my patient has sleep apnea and she is aware of this problem. She has an [place] score of 13. No issues with insomnia. No panic. No anxiety. No depression. No heartburn. No restlessness and lower extremities. She has history of ADHD and she has had difficulties in consultation for many years for which she was given Adderall and she continues to take Adderall 10 mg in the morning. She has history of dep ression, adequately treated. She has also remote history of coronary artery disease and ID that occurred back in 2017 without any interventions. She is also known to have hypertension. No sleep paralysis. No hallucinations. No cataplexy. No nocturnal seizures. No nocturnal heartburn or chest pain. Review of Systems Constitutional: Reports daytime sleepiness, Reports fatigue, Reports weight gain Eyes: denies as per HPI, denies blurred vision, denies bulging eye, denies decreased vision, denies diplopia, denies discharge, denies dry eye, denies irritation, denies itching, denies pain, denies photophobia, denies loss of peripheral vision, denies loss of vision, denies tunnel vision/blind spots Ears: deny: decreased hearing, ear discharge, earache, tinnitus Ears, nose, mouth and throat: Reports as per HPI Breasts: absent: as per HPI, change in shape, gynecomastia, masses, nipple discharge, pain, skin changes, swelling Cardiovascular: Reports as per HPI Respiratory: Reports snoring Gastrointestinal: Reports as per HPI Genitourinary: Reports as per HPI Menstruation: Reports as per HPI Musculoskeletal: Reports as per HPI Musculoskeletal: absent: ankle pain, ankle stiffness, ankle swelling Integumentary: Reports as per HPI Neurological: Reports as per HPI Psychiatric: Reports as per HPI Past Medical History Past Medical History: Hypertension, Osteoarthritis (OA), Skin Disorder Additional Past Medical History / Comment(s): HX MIGRAINES, ENVIRONMENTAL ALLERGIES, 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 History of Any Multi-Drug Resistant Organisms: None Reported Past Surgical History: Section, Heart Catheterization, Hysterectomy, Joint Replacement Additional Past Surgical History / Comment(s): 1989 & 1991, hysterectomy 1997, right knee surgery 2004 & left knee 2009, armando cataract 2012, colonoscopy 2015, 2016 right knee arthrosopy repeated, Heart Cath June 2017 (mph), Total Left Knee (04/14/19) Past Anesthesia/Blood Transfusion Reactions: Postoperative Nausea & Vomiting (PONV) Past Psychological History: ADD/ADHD, Depression Past Alcohol Use History: Rare Past Drug Use History: None Reported - Past Family History Mother Family Medical History: No Reported History Father Additional Family Medical History / Comment(s): Triple bypass surgery & carotids done Medications and Allergies Home Medications Medication Instructions Recorded Confirmed Type hydroCHLOROthiazide [Hydrodiuril] 25 mg PO DAILY 12/15/15 09/08/19 History Cholecalciferol [Vitamin D3 (25 5,000 unit PO DAILY 12/21/15 09/08/19 History Mcg = 1000 Iu)] Metoprolol Tartrate [Lopressor] 25 mg PO BID #60 tab 06/26/17 09/08/19 Rx Ascorbic Acid [Vitamin C] 1,000 mg PO DAILY 04/07/19 09/08/19 History Aspirin [Adult Low Dose Aspirin EC] 81 mg PO DAILY 04/07/19 09/08/19 History Desvenlafaxine Succinate [Pristiq] 50 mg PO QAM 04/07/19 09/08/19 History Montelukast [Singulair] 10 mg PO DAILY 04/07/19 09/08/19 History Multivitamins, Thera [Multivitamin 1 tab PO DAILY 06/03/19 09/08/19 History (formulary)] Dextroamphetamine/Amphetamine 10 mg PO QAM 09/08/19 09/08/19 History [Adderall Xr] Cephalexin [Keflex] 500 mg PO Q8HR #21 cap 09/09/19 Rx Allergies Allergy/AdvReac Type Severity Reaction Status Date / Time adhesive Allergy Severe lake to Verified 05/02/20 18:00 skin Physical Exam Patient is morbidly obese, calm and comfortable, not in acute distress. Her body mass index is 44 Head exam was generally normal. There was no scleral icterus or corneal arcus. Mucous membranes were moist. Neck was supple and without jugular venous distension, thyromegaly, or carotid bruits. Carotids were easily palpable bilaterally. There was no adenopathy. The patient is a Mallampati class IV with significant crowding of the posterior oropharynx Lungs were clear to auscultation and percussion, and with normal diaphragmatic excursion. No wheezes or rales were noted. Cardiac exam revealed the PMI to be normally situated and sized. The rhythm was regular and no extrasystoles were noted during several minutes of auscultation. The first and second heart sounds were normal and physiologic splitting of the second heart sound was noted. There were no murmurs, rubs, clicks, or gallops. Abdominal exam revealed normal bowel sounds. The abdomen was soft, non-tender, and without masses, organomegaly, or appreciable enlargement of the abdominal aorta. Examination of the extremities revealed easily palpable radial, femoral and pedal pulses. There was no cyanosis, clubbing or edema. Examination of the skin revealed no evidence of significant rashes, suspicious appearing nevi or other concerning lesions. Neurologically, the patient is awake and alert and the patient does not have any focal neurological deficit. Cranial nerves are essentially intact. Assessment and Plan Plan: Chronic hypersomnia with an [place] score of 13/fatigue, currently under investigation. Rule out possibility of obstructive sleep apnea Snoring Sleep fragmentation Obesity with interval weight gain. Current body mass index is 44 History of ADHD, currently on Adderall Hypertension Depression ALLERGIC rhinitis Subcutaneous T-cell lymphoma Osteoarthritis Plan We'll screen this patient with a home sleep study. Noted the patient has had a study more than 10 years ago and she was told to have some mild nocturnal oxygen desaturations. She was not offered any treatment back then. Her condition is honestly worse and the patient is requesting further investigation. Will do a home sleep study and proceed accordingly. Time with Patient: Greater than 30 Sleep Note - Sleep Note Sleep Note: Temperature: Pulse Rate: Respiratory Rate: Blood Pressure: SpO2: Height: Weight: BMI: Neck Circumference:
== END ==
LOC: 3 N SLEEP 15:02
PROVIDERS: ATTEND Internal Medicine Critical Care Medicine
DX: R06.83 Snoring (principal); E66.9 Obesity, unspecified; F90.9 Attention-deficit hyperactivity disorder, unspecified type; I10 Essential (primary) hypertension; F32.A Depression, unspecified; M19.90 Unspecified osteoarthritis, unspecified site; J30.9 Allergic rhinitis, unspecified; C84.A0 Cutaneous T-cell lymphoma, unspecified, unspecified site; Z79.899 Other long term (current) drug therapy; Z91.048 Other nonmedicinal substance allergy status; Z87.891 Personal history of nicotine dependence
CPT/HCPCS: 99211

== ENCOUNTER → 2023-08-14 | Outpatient (CLI) | payer BC | LOC: 3 N SLEEP 10:54 | PROVIDERS: ATTEND Internal Medicine Critical Care Medicine | DX: G47.33 Obstructive sleep apnea (adult) (pediatric) (principal); Z91.048 Other nonmedicinal substance allergy status; Z87.891 Personal history of nicotine dependence ==

== ENCOUNTER → 2023-09-05 | Outpatient (CLI) | payer BC ==
--- NOTE | 2023-09-06 08:10 | MM ---
Reason for Exam: Screening (asymptomatic). Last mammogram was performed 1 year(s) and 2 month(s) ago. Patient History: Menarche at age 15. First Full-Term at age 29. Late child-bearing (after 28). Left ovary removed at age 37. Right ovary removed at age 37. Hysterectomy at age 37. Postmenopausal. Patient has history of breast feeding. Estrogen for 11 years, 8 months, from age 37 until age 48. Maternal grandmother had breast cancer, age 72. Maternal aunt had breast cancer, age 60. Risk Values: Sarahy 5 year model risk: 2.1%. NCI Lifetime model risk: 7.8%. Prior Study Comparison: 11/28/2015 Bilateral Screening Mammogram, [facility]. 07/12/2017 Bilateral Screening Mammogram, [facility]. 10/19/2019 Bilateral Screening Mammogram, [facility]. 07/05/2022 Bilateral MG screening mammo w CAD, [facility]. Tissue Density: There are scattered fibroglandular densities. Findings: Analyzed By CAD. Small asymmetric stellate density seen best on the right MLO view above the level of the nipple anterior one third of the right breast. Additional views are recommended. No masses or distortion seen of the left breast. No suspicious calcifications seen bilaterally. Overall Assessment: Incomplete: need additional imaging evaluation, BI-RAD 0 Management: Diagnostic Mammogram of the right breast. . Patient should continue monthly self-breast exams. A clinical breast exam by your physician is recommended on an annual basis. This exam should not preclude additional follow-up of suspicious palpable abnormalities. Note on Sarahy scores and lifetime risk: 1. A Sarahy score greater than 3% is considered moderate risk. If this is the case, consider specialist referral to assess eligibility for a risk reducing agent. 2. If overall lifetime risk for the development of breast cancer is 20% or higher, the patient may qualify for future screening with alternating mammogram and breast MRI. Electronically signed and approved by: Campbell Mancia M.D. Radiologis
== END | disposition home or self-care (01) ==
LOC: RADMAMWWP 09:00
PROVIDERS: ATTEND Family Medicine
DX: Z12.31 Encounter for screening mammogram for malignant neoplasm of breast (principal); Z78.0 Asymptomatic menopausal state; Z80.3 Family history of malignant neoplasm of breast
CPT/HCPCS: 77067

== ENCOUNTER → 2023-09-10 | Outpatient (CLI) | payer BC ==
--- NOTE | 2023-09-10 10:46 | MM ---
Reason for Exam: Additional evaluation requested from abnormal screening. Last screening mammogram was performed less than 1 month ago. Patient History: Menarche at age 15. First Full-Term at age 29. Late child-bearing (after 28). Left ovary removed at age 37. Right ovary removed at age 37. Hysterectomy at age 37. Postmenopausal. Patient has history of breast feeding. Estrogen for 11 years, 8 months, from age 37 until age 48. Maternal grandmother had breast cancer, age 72. Maternal aunt had breast cancer, age 60. Risk Values: Sarahy 5 year model risk: 2.1%. NCI Lifetime model risk: 7.8%. Prior Study Comparison: 02/27/2000 Bilateral Screening Mammogram, [facility]. 09/30/2002 Bilateral Screening Mammogram, [facility]. 04/04/2005 Bilateral Screening Mammogram, [facility]. 03/03/2008 Bilateral Screening Mammogram, [facility]. 05/10/2009 Bilateral Screening Mammogram, [facility]. 03/15/2011 Bilateral Screening Mammogram, [facility] 11/28/2015 Bilateral Screening Mammogram, [facility]. 07/12/2017 Bilateral Screening Mammogram, [facility]. 10/19/2019 Bilateral Screening Mammogram, [facility]. 07/05/2022 Bilateral MG screening mammo w CAD, [facility]. 09/05/2023 Bilateral MG screening mammo w CAD, [facility]. Tissue Density: Right: There are scattered fibroglandular densities. Findings: Analyzed By CAD. Previously seen asymmetric density on the MLO view does not persist on today's exam with compression. No new suspicious masses. No architectural distortion or worrisome group of calcifications. Overall Assessment: Negative, BI-RAD 1 Management: Screening Mammogram of both breasts in 1 year. A clinical breast exam by your physician is recommended on an annual basis and results should be correlated with mammographic findings. This exam should not preclude additional follow-up of suspicious palpable abnormalities. Results were given to the patient verbally at the time of exam. Note on Sarahy scores and lifetime risk: 1. A Sarahy score greater than 3% is considered moderate risk. If this is the case, consider specialist referral to assess eligibility for a risk reducing agent. If overall lifetime risk for the development of breast cancer is 20% or higher, the patient may qualify for future screening with alternating mammogram and breast MRI. Electronically signed and approved by: Juan Manuel Marie D.O.
== END | disposition home or self-care (01) ==
LOC: RADMAMWWP 10:19
PROVIDERS: ATTEND Family Medicine
DX: R92.8 Other abnormal and inconclusive findings on diagnostic imaging of breast (principal); Z78.0 Asymptomatic menopausal state; Z80.3 Family history of malignant neoplasm of breast
CPT/HCPCS: 77061; 77065

== ENCOUNTER 2024-07-15 12:20 | Emergency (ER) | payer BC, MEDICARE ==
[2024-07-15] MEDS ORDERED: HYDROmorphone 0.5 MG/0.5 ML SYRINGE ONE (13:20)
[2024-07-15] MEDS ORDERED: TOPICAL SKIN ADHESIVE 1 EACH AMP TOPICAL ONE (14:49)
[2024-07-15] MEDS ORDERED: KETOROLAC 15 MG/ML 1 ML VIAL ONE (15:28)
--- NOTE | 2024-08-13 10:05 | CT ---
Patient Imer, Magui ID [id number] Order # EXAMINATION TYPE: CT brain cspine wo con CT DLP: 1456.8 mGycm, Automated exposure control for dose reduction was used. DATE OF EXAM: 07/15/2024 2:20 PM COMPARISON: THIS EXAM WAS READ DURING PACS DOWNTIME, NO PRIORS AVAILABLE. CLINICAL INDICATION: FELL FACE FORWARD TECHNIQUE: Brain: Multiple axial CT images of the brain were obtained without IV contrast. Cspine: Axial CT images from the skull base to the inferior aspect of T2 we obtained without intraven ous contrast. Coronal and sagittal reformatted images were also reviewed. . FINDINGS: Brain: Extra-axial spaces: No abnormal extra-axial fluid collections. Ventricular system: Within normal limits Cerebral parenchyma: No acute intraparenchymal hemorrhage or mass effect. The cortes-white junction is well differentiated. Cerebellum: Unremarkable. Mass effect: No evidence of midline shift. Intracranial vasculature: unremarkable Soft tissues: Normal. Calvarium/osseous structures: No depressed skull fracture. Paranasal sinuses and mastoid air cells: Clear. Visualized orbits: Bilateral aphakia Cervical spine: Fracture: None. Osseous structures: Multilevel degenerative disc disease changes with endplate spurring and disc oste ophyte complex's. Vertebral alignment: Within normal limits. Spinal canal/Neural Foramina: No evidence of significant spinal canal narrowing. No evidence for sign ificant neural foraminal stenosis. Neck soft tissues: Prevertebral soft tissues are within normal limits. Other: The airway is patent. The lung apices are clear. Deformity to the nasal bone on the left with mild soft tissue swelling. IMPRESSION: 1. No acute intracranial process. 2. Left nasal bone deformity correlate with pain for fracture. 3. No evidence of cervical spine fracture. 4. Mild multilevel degenerative disc disease.
--- NOTE | 2024-08-19 08:10 | XR ---
Patient Magui Willams ID [id number] Order # EXAMINATION TYPE: XR knee 3V LT DATE OF EXAM: 07/15/2024 COMPARISON: No comparison on downtime PACS HISTORY: Pain from fall TECHNIQUE: 3 view left knee FINDINGS: Tibial and femoral components are present. No acute fracture or dislocation is evident. No joint effusion is evident. Follow up exams can be performed 7-10 days from acute trauma for continued pain. IMPRESSION: 1. No acute fracture left knee
--- NOTE | 2024-09-02 14:31 | CT ---
Patient Jaye Willamsy ID [id number] Order # EXAMINATION TYPE: CT brain cspine wo con CT DLP: 1456.8 mGycm, Automated exposure control for dose reduction was used. DATE OF EXAM: 07/15/2024 2:20 PM COMPARISON: THIS EXAM WAS READ DURING PACS DOWNTIME, NO PRIORS AVAILABLE. CLINICAL INDICATION: FELL FACE FORWARD TECHNIQUE: Multiple unenhanced axial CT images were obtained of the facial bones soft tissue and bone windows. Coronal, axial and sagittal reformatted images were also provided in soft tissue and bone windows and submitted for interpretation. Additional 3-D reformatted images were obtained on a [employer] workstation. . Contrast used: mL of , (none if empty) Oral contrast used: (none if empty) FINDINGS: Deformity to the nasal bone on the left with mild soft tissue swelling. There is no additional evidence of fracture, subluxation, dislocation, or significant soft tissue swe lling. The orbital contents are unremarkable.The temporal-mandibular joints appear symmetric. The vis ualized portion of the paranasal sinuses appear clear. IMPRESSION: Left nasal bone deformity correlate with pain for fracture.
== END 2024-07-15 15:30 | disposition home or self-care (01) ==
LOC: EC 12:20
CPT/HCPCS: 70450; 70486; 72125; 96374; 96375; 99283

== ENCOUNTER 2024-09-05 19:39 | Emergency (ER) | payer BC, MEDICARE ==
[2024-09-05 19:57] VITALS: RESP 18
--- NOTE | 2024-09-05 20:24 | ED ---
Fall HPI - General Chief Complaint: Fall Stated Complaint: fall, CITLALI Time Seen by Provider: 09/05/24 20:23 Source: patient, RN notes reviewed Mode of arrival: ambulatory Limitations: no limitations - History of Present Illness Initial Comments: 64-year-old female presenting to the ER with a chief complaint of left rib pain. Patient states she was mowing the lawn this afternoon and she has a big amount of dirt in her lawn. She states she accidentally tripped over the mild causing her to fall landing on her left side. Patient denies any head injury, loss of consciousness, dizziness, lightheadedness, chest pain or breath prior to fall. She is not on any blood thinning medications. She states since fall she has been endorsing pain to her left side especially with deep inspirations. She states it is painful to breathe and painful to touch of her left anterior ribs. She also reports that she believes she hyperextended her left wrist. She denies any limited range of motion, swelling or pain at this time. She denies any other injuries or complaints. - Related Data Home Medications Medication Instructions Recorded Confirmed hydroCHLOROthiazide [Hydrodiuril] 25 mg PO DAILY 12/15/15 09/08/19 Cholecalciferol [Vitamin D3 (25 5,000 unit PO DAILY 12/21/15 09/08/19 Mcg = 1000 Iu)] Ascorbic Acid [Vitamin C] 1,000 mg PO DAILY 04/07/19 09/08/19 Aspirin [Adult Low Dose Aspirin EC] 81 mg PO DAILY 04/07/19 09/08/19 Desvenlafaxine Succinate [Pristiq] 50 mg PO QAM 04/07/19 09/08/19 Montelukast [Singulair] 10 mg PO DAILY 04/07/19 09/08/19 Multivitamins, Thera [Multivitamin 1 tab PO DAILY 06/03/19 09/08/19 (formulary)] Dextroamphetamine/Amphetamine 10 mg PO QAM 09/08/19 09/08/19 [Adderall Xr] Previous Rx's Medication Instructions Recorded Metoprolol Tartrate [Lopressor] 25 mg PO BID #60 tab 06/26/17 Cephalexin [Keflex] 500 mg PO Q8HR #21 cap 09/09/19 Allergies Allergy/AdvReac Type Severity Reaction Status Date / Time adhesive Allergy Severe lake to Verified 09/05/24 19:57 skin Review of Systems ROS Statement: Those systems with pertinent positive or pertinent negative responses have been documented in the HPI. ROS Other: All systems not noted in ROS Statement are negative. 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 History of Any Multi-Drug Resistant Organisms: None Reported Past Surgical History: Section, Heart Catheterization, Hysterectomy, Joint Replacement Additional Past Surgical History / Comment(s): 1989 & 1991, hysterectomy 1997, right knee surgery 2004 & left knee 2009, armando cataract 2012, colonoscopy 2015, 2016 right knee arthrosopy repeated, Heart Cath June 2017 (mph), Total Left Knee (04/14/19) Past Anesthesia/Blood Transfusion Reactions: Postoperative Nausea & Vomiting (PONV) Past Psychological History: ADD/ADHD, Depression Smoking Status: Never smoker Past Alcohol Use History: Rare Past Drug Use History: None Reported - Past Family History Mother Family Medical History: No Reported History Father Additional Family Medical History / Comment(s): Triple bypass surgery & carotids done General Exam Limitations: no limitations General appearance: alert, in no apparent distress Respiratory exam: Present: normal lung sounds bilaterally, chest wall tenderness (Left anterior ribs. No paradoxical chest wall motions. No overlying skin changes.). Absent: respiratory distress, wheezes, rales, rhonchi, stridor Cardiovascular Exam: Present: regular rate, normal rhythm, normal heart sounds. Absent: systolic murmur, diastolic murmur, rubs, gallop, clicks Extremities exam: Present: normal inspection, full ROM, normal capillary refill, other (2+ bilateral radial pulses. Patient has full active range of motion. No focal bony tenderness.). Absent: tenderness, pedal edema, joint swelling, calf tenderness Neurological exam: Present: alert, oriented X3, CN II-XII intact Skin exam: Present: warm, dry, intact, normal color. Absent: rash Course Vital Signs 09/05/24 19:55 Temperature 98 F Pulse Rate 101 H Respiratory 18 Rate Blood Pressure 193/77 O2 Sat by Pulse 97 Oximetry Medical Decision Making - Medical Decision Making Was pt. sent in by a medical professional or institution ([facility], [facility], urgent care, hospital, or intermediate...) When possible be specific @ -No Did you speak to anyone other than the patient for history (EMS, parent, family, police, friend...)? What history was obtained from this source @ -No Did you review nursing and triage notes (agree or disagree)? Why? @ -I reviewed and agree with nursing and triage notes Were old charts reviewed (outside hosp., previous admission, EMS record, old EKG, old radiological studies, urgent care reports/EKG's, intermediate records)? Report findings @ -No old charts were reviewed Differential Diagnosis (chest pain, altered mental status, abdominal pain women, abdominal pain men, vaginal bleeding, weakness, fever, dyspnea, syncope, headache, dizziness, GI bleed, back pain, seizure, CVA, palpatations, mental health, musculoskeletal)? @ -Fracture, dislocation, contusion, hematoma, intracranial hemorrhage, concussion, abrasion, laceration this list does not like to be all-inclusive EKG interpreted by me (3pts min.). @ -None done X-rays interpreted by me (1pt min.). @ -Left ribs AP chest x-ray interpreted by me negative for acute process. CT interpreted by me (1pt min.). @ -None done U/S interpreted by me (1pt. min.). @ -None done What testing was considered but not performed or refused? (CT, X-rays, U/S, labs)? Why? @ -None What meds were considered but not given or refused? Why? @ -None Did you discuss the management of the patient with other professionals (professionals i.e. [facility], [facility], lab, RT, psych nurse, social work lecturer, patent lawyer, teacher, soil science technical officer, gearcase assembler)? Give summary @ -No Was smoking cessation discussed for >3mins.? @ -No Was critical care preformed (if so, how long)? @ -No Were there social determinants of health that impacted care today? How? (Homelessness, low income, unemployed, alcoholism, drug addiction, transportation, low edu. Level, literacy, decrease access to med. care, intermediate, rehab)? @ -No Was there de-escalation of care discussed even if they declined (Discuss DNR or withdrawal of care, Hospice)? DNR status @ -No What co-morbidities impacted this encounter? (DM, HTN, Smoking, COPD, CAD, Cancer, CVA, ARF, Chemo, Hep., AIDS, mental health diagnosis, sleep apnea, morbid obesity)? @ -None Was patient admitted / discharged? Hospital course, mention meds given and route, prescriptions, significant lab abnormalities, going to OR and other pertinent info. @ -Discharge. 64-year-old female presented to ER with chief complaint of a fall. History and physical exam completed. Vitals within normal limits. Patient in no signs of acute distress. Exam remarkable for tenderness to left anterior ribs. No evidence of flail chest. No overlying skin changes. Pain with deep inspiration and movement. Bilateral upper and lower extremities neurovascular intact. There is no other focal bony tenderness. X-rays obtained negative. Patient received p.o. ibuprofen for pain control in the ER. Upon reevaluation, patient resting comfortably in exam room. Results discussed with patient, all questions answered. Pain believed to be rib contusion in nature. Conservative treatment options discussed. Patient discharged with an incentive spirometer. Advised use hourly. Strict return parameters discussed. Patient discharged in stable condition with follow-up to PCP. Patient verbally expressed understanding agree with care plan. Case discussed with ED attending Dr. Oconnor.] Undiagnosed new problem with uncertain prognosis? @ -No Drug Therapy requiring intensive monitoring for toxicity (Heparin, Nitro, Insulin, Cardizem)? @ -No Were any procedures done? @ -No Diagnosis/symptom? @ -Fall/rib contusion Acute, or Chronic, or Acute on Chronic? @ -Acute Uncomplicated (without systemic symptoms) or Complicated (systemic symptoms)? @ -Uncomplicated Side effects of treatment? @ -No Exacerbation, Progression, or Severe Exacerbation? @ -No Poses a threat to life or bodily function? How? (Chest pain, USA, NM, pneumonia, PE, COPD, DKA, ARF, appy, cholecystitis, CVA, Diverticulitis, Homicidal, Suicidal, threat to staff... and all critical care pts) @ -No - Radiology Data Radiology results: report reviewed, image reviewed Disposition Clinical Impression: Fall, Rib contusion Disposition: HOME SELF-CARE Condition: Stable Instructions (If sedation given, give patient instructions): How to Use an Incentive Spirometer (ED), Rib Contusion (ED) Additional Instructions: Use incentive spirometer hourly. I recommend [id number] anti- inflammatories including ibuprofen for pain control. Be aware ibuprofen can cause stomach upset. Follow-up with PCP. Return to the ER for any new or worsening concerns. Is patient prescribed a controlled substance at d/c from ED?: No Referrals: Espinoza Panchal MD [Primary Care Provider] - 1-2 days Time of Disposition: 21:28
[2024-09-05] MEDS: IBUPROFEN 600 MG TAB PO STA (20:34)
--- NOTE | 2024-09-05 21:10 | XR ---
EXAMINATION TYPE: XR ribs LT w pa chest xray DATE OF EXAM: 09/05/2024 COMPARISON: 06/24/2017 HISTORY: Fall, pain TECHNIQUE: Chest exam in the frontal projection. Left ribs are examined in 2 projections. FINDINGS: No acute displaced rib fractures are evident. No pneumothorax is rib images. Heart size is normal. Pulmonary vasculature is normal. Lungs are clear. No pneumothorax is evident on chest study. IMPRESSION: 1. No acute left rib fracture [facility], Workstation: [facility], 09/05/2024 9:08 PM
[2024-09-05 21:47] VITALS: BP 154/69; PULSE 84; TEMP 97.9
== END 2024-09-05 21:39 | disposition home or self-care (01) ==
LOC: EC 19:39
CPT/HCPCS: 99283

== ENCOUNTER → 2024-12-24 | Outpatient (CLI) | payer BC, MEDICARE ==
--- NOTE | 2024-12-30 07:24 | MM ---
Reason for Exam: Screening (asymptomatic). Last mammogram was performed 1 year(s) and 3 month(s) ago. Patient History: Menarche at age 15. First Full-Term at age 29. Late child-bearing (after 28). Left ovary removed at age 37. Right ovary removed at age 37. Hysterectomy at age 37. Postmenopausal. Patient has history of breast feeding. Estrogen for 11 years, 8 months, from age 37 until age 48. Maternal grandmother had breast cancer, age 72. Maternal aunt had breast cancer, age 60. Risk Values: Sarahy 5 year model risk: 2.1%. NCI Lifetime model risk: 7.5%. Prior Study Comparison: 07/05/2022 Bilateral MG screening mammo w CAD, [facility]. 09/05/2023 Bilateral MG screening mammo w CAD, [facility]. 09/10/2023 Right MG 3D work up w/cad RT, [facility]. Tissue Density: There are scattered areas of fibroglandular density. Findings: Analyzed By CAD. There is no suspicious group of microcalcifications or new suspicious mass in either breast. Overall Assessment: Negative, BI-RAD 1 Management: Screening Mammogram of both breasts in 1 year. Patient should continue monthly self-breast exams. A clinical breast exam by your physician is recommended on an annual basis. This exam should not preclude additional follow-up of suspicious palpable abnormalities. Note on Sarahy scores and lifetime risk: 1. A Sarahy score greater than 3% is considered moderate risk. If this is the case, consider specialist referral to assess eligibility for a risk reducing agent. 2. If overall lifetime risk for the development of breast cancer is 20% or higher, the patient may qualify for future screening with alternating mammogram and breast MRI. [facility], , 12/24/2024 1:27 PM. Electronically signed and approved by: Jazzmine Badillo M.D. Radiologist
== END | disposition home or self-care (01) ==
LOC: RADMAMWWP 12:49
PROVIDERS: ATTEND Family Medicine
DX: Z12.31 Encounter for screening mammogram for malignant neoplasm of breast (principal); R92.323 Mammographic fibroglandular density, bilateral breasts; Z78.0 Asymptomatic menopausal state; Z80.3 Family history of malignant neoplasm of breast
CPT/HCPCS: 77067